=== PATIENT | female | born 1945 | race African-American/Black ===

== ENCOUNTER 2020-02-08 16:39 | Inpatient (IN) | payer OTHER ==
--- NOTE | 2020-02-08 17:02 | PDOC ---
History of Present Illness - General Chief Complaint: Pain Stated Complaint: AMS Time Seen by Provider: 02/08/20 17:02 - History of Present Illness Initial Comments: 02/08/20 17:20 74 year old woman with a history of bullous pemphigoid, L breast CA and early dementia who presents with some signs of AMS earlier in the morning. Per the home agent this evening the AM aid was away for several days and returned and felt that the patient was acting slighlty different, however the evening home agent who is accompanying her reports she is the same as she has been for the past several days. She notes that the patient has some early dementia and gets confused in the mornings. The patient is continent and only wears a diaper for accidents. Normal eating and drinking No fevers, chronic cough, no chest pain, shortness of breath Patient only complains of a chronic sore but has no other complaints Meds: eliquis, metoprolol, anastrozole, sertraline ROS GENERAL/CONSTITUTIONAL: No fever or chills. No weakness. HEAD, EYES, EARS, NOSE AND THROAT: No change in vision. No ear pain or discharge. No sore throat. CARDIOVASCULAR: No chest pain or shortness of breath RESPIRATORY: No cough, wheezing, or hemoptysis. GASTROINTESTINAL: No nausea, vomiting, diarrhea or constipation. GENITOURINARY: No dysuria, frequency, or change in urination. MUSCULOSKELETAL: No joint or muscle swelling or pain. No neck or back pain. SKIN: No rash NEUROLOGIC: No headache, vertigo, loss of consciousness, or change in strength/sensation. ENDOCRINE: No increased thirst. No abnormal weight change HEMATOLOGIC/LYMPHATIC: No anemia, easy bleeding, or history of blood clots. ALLERGIC/IMMUNOLOGIC: No hives or skin allergy. PE GENERAL: Awake, alert, and fully oriented, in no acute distress HEAD: No signs of trauma, normocephalic, atraumatic EYES: EOMI, sclera anicteric, conjunctiva clear ENT: oropharynx clear without exudates. Moist mucosa NECK: Normal ROM, supple LUNGS: No distress, speaks full sentences, clear to auscultation bilaterally HEART: Regular rate and rhythm, normal S1 and S2, no murmurs, rubs or gallops, peripheral pulses normal and equal bilaterally. ABDOMEN: Soft, nontender, No guarding, no rebound. No masses EXTREMITIES : Normal inspection, Normal range of motion, no edema. No clubbing or cyanosis. NEUROLOGICAL: Cranial nerves II through XII grossly intact. Normal speech, no focal sensorimotor deficits SKIN: severe bullous pemphigoid with wounds and dry skin, blisters aroudn the mouth Assessment and Plan 74 year old woman with a history of bullous pemphigoid, L breast CA and early dementia who presents with some signs of AMS earlier in the morning. Consider infectious vs electrolyte derangement vs intracranial pathology CXR: bilateral L > R interstitial infiltrates labs with eosinophils, elevated BNP (no priors, no clinical signs of fluid overload) pending CT head and chest Likely admit endorsed to resident Dr Karol Quevedo, PGY2 Emergency Medicine Past History - Medical History Allergies/Adverse Reactions: Allergies Allergy/AdvReac Type Severity Reaction Status Date / Time Penicillins Allergy Intermediate unaware Verified 02/08/20 17:01 Home Medications: Ambulatory Orders Oxycodone HCl/Acetaminophen [Percocet 5-325 mg Tablet -] 1 - 2 tab PO Q4H PRN #30 tablet 08/01/13 Solifenacin Succinate [Vesicare] 5 mg PO DAILY 08/01/13 levoFLOXacin [Levaquin -] 500 mg PO DAILY #7 tablet 08/01/13 Cancer: Yes (breast) COPD: No Liver Disease: Yes (?medicine induced hepatitis) - Psycho-Social/Smoking History Smoking History: Never smoked Have you smoked in the past 12 months: No Number of Cigarettes Smoked Daily: 5 Information on smoking cessation initiated: No 'Breaking Loose' booklet given: 08/01/13 - Substance Abuse Hx (Audit-C & DAST Scrn) How often the patient has a drink containing alcohol: Never Score: In Men: 4 or > Positive; In Women: 3 or > Positive: 0 Screen Result (Pos requires Nsg. Audit-10AR): Negative In the last yr the pt used illegal drug/Rx for NonMed reason: No Score: Yes response is considered Positive: 0 Screen Result (Positive result requires Nsg. DAST-10): Negative *Physical Exam - Vital Signs Last Vital Signs Temp Pulse Resp BP Pulse Ox 98.4 F 45 L 20 102/64 100 02/08/20 16:55 02/08/20 16:55 02/08/20 16:55 02/08/20 16:55 02/08/20 16:55 ED Treatment Course - LABORATORY CBC & Chemistry Diagram: 02/10/20 08:12 02/10/20 08:12 Discharge - Discharge Information Problems reviewed: Yes Clinical Impression/Diagnosis: Pneumonia - Follow up/Referral - Patient Discharge Instructions - Post Discharge Activity
[2020-02-08 18:14] LABS: BASO % 0.6 % (0-2.0); HEMATOCRIT 32.6 % (32.4-45.2); HEMOGLOBIN 10.4 GM/dL (10.7-15.3); LYMPH % 17.6 % (8-40); MCH 29.7 pg (25.7-33.7); MCHC 31.9 g/dl (32.0-36.0); MEAN CELL VOLUME 93.2 fl (80-96); MEAN PLT VOLUME 7.5 fl (7.5-11.1); MONO % 7.6 % (3.8-10.2); NEUT % 52.7 % (42.8-82.8); PLATELET COUNT 432 K/MM3 (134-434); RDW 16.2 % (11.6-15.6); WHITE BLOOD COUNT 8.9 K/mm3 (4.0-10.0)
[2020-02-08 18:19] LABS: INR 1.54 (0.83-1.09); PROTHROMBIN TIME (PATIENT) 18.2 SEC (9.7-13.0)
[2020-02-08 18:22] LABS: ACTIVATED PTT 31.8 SECONDS (25.2-36.5)
--- NOTE | 2020-02-08 18:24 | PDOC ---
Documentation entered by Monroe Moreno SCRIBE, acting as scribe for Peter Trejo MD. Peter Trejo MD: This documentation has been prepared by the Tiffanie garcia Nirvannie, SCRIBE, under my direction and personally reviewed by me in its entirety. I confirm that the documentation accurately reflects all work, treatment, procedures, and medical decision making performed by me. Attending Attestation - Resident Resident Name: Daniella Quevedo - ED Attending Attestation I have performed the following: I have examined & evaluated the patient, The case was reviewed & discussed with the resident, I agree w/resident's findings & plan, Exceptions are as noted - HPI HPI: 02/08/20 17:52 Patient is 74 year old female with a significant past medical history of bullous pemphigoid, L breast CA and early dementia who presents to the ED with possible AMS. The morning aid reported that the patient was acting "slightly different", but the evening aid accompanying her reports that the patient is at her baseline. She also stated that due to the signs of early dementia, the patient is often confused in the mornings. History was limited secondary to patient's clinical condition thus was obtained via home health aid. Patient complains of a chronic sore Denies fevers, chronic cough, chest pain, shortness of breath Allergies: Penicillins - Physicial Exam PE: 02/08/20 18:26 See resident exam - Medical Decision Making 02/08/20 18:27 74 F with possible episode of AMS this morning. Pt now at baseline per aide. - Labs - CT head - CXR, UA 02/08/20 18:48 CXR shows bilateral infiltrates Will obtain CT chest Discharge - Discharge Information Problems reviewed: Yes Clinical Impression/Diagnosis: Pneumonia Condition: Stable Disposition: VNS/HOME HEALTH CARE - Follow up/Referral - Patient Discharge Instructions - Post Discharge Activity
[2020-02-08 18:41] LABS: EOS % 21.5 % (0-4.5); PLATELET ESTIMATE ADEQUATE
[2020-02-08 18:43] LABS: ALBUMIN 1.5 g/dl (3.4-5.0); BILIRUBIN,TOTAL 0.4 mg/dL (0.2-1); CALCIUM 8.1 mg/dL (8.5-10.1); CREATININE 1.2 mg/dL (0.55-1.3); N-TERMINAL BNP 2117.1 pg/ml (5-125); POTASSIUM 4.8 mmol/L (3.5-5.1)
--- NOTE | 2020-02-08 19:10 | PDOC ---
History of Present Illness - General Chief Complaint: Pain Stated Complaint: AMS Time Seen by Provider: 02/08/20 17:02 History Source: Patient Past History - Medical History Allergies/Adverse Reactions: Allergies Allergy/AdvReac Type Severity Reaction Status Date / Time Penicillins Allergy Intermediate unaware Verified 02/08/20 17:01 Home Medications: Ambulatory Orders Oxycodone HCl/Acetaminophen [Percocet 5-325 mg Tablet -] 1 - 2 tab PO Q4H PRN #30 tablet 08/01/13 Solifenacin Succinate [Vesicare] 5 mg PO DAILY 08/01/13 levoFLOXacin [Levaquin -] 500 mg PO DAILY #7 tablet 08/01/13 Cancer: Yes (breast) COPD: No Liver Disease: Yes (?medicine induced hepatitis) - Psycho-Social/Smoking History Smoking History: Never smoked Have you smoked in the past 12 months: No Number of Cigarettes Smoked Daily: 5 Information on smoking cessation initiated: No 'Breaking Loose' booklet given: 08/01/13 - Substance Abuse Hx (Audit-C & DAST Scrn) How often the patient has a drink containing alcohol: Never Score: In Men: 4 or > Positive; In Women: 3 or > Positive: 0 Screen Result (Pos requires Nsg. Audit-10AR): Negative In the last yr the pt used illegal drug/Rx for NonMed reason: No Score: Yes response is considered Positive: 0 Screen Result (Positive result requires Nsg. DAST-10): Negative *Physical Exam - Vital Signs Last Vital Signs Temp Pulse Resp BP Pulse Ox 98.4 F 45 L 20 102/64 100 02/08/20 16:55 02/08/20 16:55 02/08/20 16:55 02/08/20 16:55 02/08/20 16:55 ED Treatment Course - LABORATORY CBC & Chemistry Diagram: 02/08/20 17:28 02/08/20 17:28 - ADDITIONAL ORDERS Additional order review: Laboratory Results 02/08/20 02/08/20 17:28 17:28 PT with INR 18.20 H INR 1.54 H PTT (Actin FS) 31.8 Sodium 142 Potassium 4.8 Chloride 108 H Carbon Dioxide 28 Anion Gap 7 L BUN 18.0 Creatinine 1.2 Est GFR (CKD-EPI)AfAm 51.56 Est GFR (CKD-EPI)NonAf 44.48 Random Glucose 83 Calcium 8.1 L Total Bilirubin 0.4 AST 112 H ALT 33 Alkaline Phosphatase 63 Troponin I 0.02 B-Natriuretic Peptide 2117.1 H Total Protein 6.0 L Albumin 1.5 L 02/08/20 17:28 RBC 3.50 L MCV 93.2 MCHC 31.9 L RDW 16.2 H MPV 7.5 D Neutrophils % 52.7 Lymphocytes % 17.6 D Monocytes % 7.6 Eosinophils % 21.5 H* D Basophils % 0.6 Discharge - Follow up/Referral Referrals: Haim Madden [Primary Care Provider] - - Patient Discharge Instructions - Post Discharge Activity
--- NOTE | 2020-02-08 21:12 | PDOC ---
*Physical Exam - Vital Signs Last Vital Signs Temp Pulse Resp BP Pulse Ox 98.4 F 45 L 20 102/64 100 02/08/20 16:55 02/08/20 16:55 02/08/20 16:55 02/08/20 16:55 02/08/20 16:55 ED Treatment Course - LABORATORY CBC & Chemistry Diagram: 02/10/20 08:12 02/10/20 08:12 - ADDITIONAL ORDERS Additional order review: Laboratory Results 02/08/20 02/08/20 17:28 17:28 PT with INR 18.20 H INR 1.54 H PTT (Actin FS) 31.8 Sodium 142 Potassium 4.8 Chloride 108 H Carbon Dioxide 28 Anion Gap 7 L BUN 18.0 Creatinine 1.2 Est GFR (CKD-EPI)AfAm 51.56 Est GFR (CKD-EPI)NonAf 44.48 Random Glucose 83 Calcium 8.1 L Total Bilirubin 0.4 AST 112 H ALT 33 Alkaline Phosphatase 63 Troponin I 0.02 B-Natriuretic Peptide 2117.1 H Total Protein 6.0 L Albumin 1.5 L 02/08/20 17:28 RBC 3.50 L MCV 93.2 MCHC 31.9 L RDW 16.2 H MPV 7.5 D Neutrophils % 52.7 Lymphocytes % 17.6 D Monocytes % 7.6 Eosinophils % 21.5 H* D Basophils % 0.6 - RADIOLOGY Radiology Studies Ordered: Category Date Time Status CHEST CTA [CT] Stat CT Scan 02/08/20 20:14 Ordered Medical Decision Making - Medical Decision Making 02/08/20 21:10 74F w/hx bulloid pemphagus, active breast CA, dementia p/w concern for AMS by aid, fully alert and oriented at this time. XR concerning for bilateral infiltrates. Pending: CT Chest CT Head UA Dispo: Pending imaging 02/08/20 21:29 IV infiltrated during contrast injection. IV removed, compress placed. 02/08/20 23:59 On reassessment, patient increasingly delirious, complaining of roaches crawling onto the ceiling (which are not present). Plan for admission. Discharge - Discharge Information Problems reviewed: Yes Clinical Impression/Diagnosis: Pneumonia Condition: Stable Disposition: VNS/HOME HEALTH CARE - Follow up/Referral - Patient Discharge Instructions - Post Discharge Activity
--- NOTE | 2020-02-09 01:47 | PN ---
Teaching Attending Note Name of Resident: Dutch Hernández ATTENDING PHYSICIAN STATEMENT I saw and evaluated the patient. I reviewed the resident's note and discussed the case with the resident. I agree with the resident's findings and plan as documented. SUBJECTIVE: Patient is 74 year old woman with a PMH of Bullous pemphigoid, Penicillin all ergy, Left breast cancer and early Dementia who presents to the ER with possible AMS. The morning Aide reported that the patient was acting "slightly different", but the evening aid accompanying her reports that the patient is at her baseline. She also stated that due to the signs of early dementia, the patient is often confused in the mornings. History was limited secondary to patient's clinical condition thus was obtained from home health aid. Patient complains of a chronic pruritic generalized rash for 1.5 years. Denies fevers, chronic cough, chest pain, shortness of breath, feve, chills, dysuria or diarrhea. Has reportedly had normal eating and drinking. 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 Denies alcohol, tobacco or illicit drug use. No sick contacts or recent travels. Family history is unremarkable. OBJECTIVE: Alert Vital Signs Period Temp Pulse Resp BP Sys/Real Pulse Ox Last 24 Hr 98.4 F 45 20 102/64 100 HEENT: No Jaundice, eye redness or discharge, PERRLA, EOMI. Normocephalic, atraumatic. External ears are normal and hearing is grossly intact. No nasal discharge. Neck: Supple, nontender. No palpable adenopathy or thyromegaly. No JVD Chest: Good effort. Clear to auscultation and percussion. Heart: Regular. No S3, rub or murmur Abdomen: Not distended, soft, nontender and no HSM. No rebound or guarding. Normal bowel sounds. Ext: Peripheral pulses intact. No leg edema. Skin: Warm and dry. Generalized maculopapular rash with scabs and crusting. No petechiae or ecchymosis. Neuro: Alert. Oriented to person. Confused. CN 2-12 grossly intact. Sensation grossly intact in all four extremities and DTR are symmetric. Psych: Appropriate mood and affect. Good insight. Home Medications Medication Instructions Recorded Oxycodone HCl/Acetaminophen 1 - 2 tab PO Q4H PRN #30 tablet 08/01/13 [Percocet 5-325 mg Tablet -] Solifenacin Succinate [Vesicare] 5 mg PO DAILY 08/01/13 levoFLOXacin [Levaquin -] 500 mg PO DAILY #7 tablet 08/01/13 Abnormal Lab Results 02/08/20 02/08/20 02/08/20 17:28 17:28 17:28 RBC 3.50 L Hgb 10.4 L MCHC 31.9 L RDW 16.2 H Eosinophils % 21.5 H* D Eosinophils % (Manual) 19.0 H PT with INR 18.20 H INR 1.54 H Chloride 108 H Anion Gap 7 L Calcium 8.1 L AST 112 H B-Natriuretic Peptide 2117.1 H Total Protein 6.0 L Albumin 1.5 L Current Medications Generic Name Dose Route Start Last Admin Trade Name Freq PRN Reason Stop Dose Admin Albuterol Sulfate 2 puff 02/09/20 04:19 Ventolin Hfa Inhaler - IH Q4H PRN SHORT OF BREATH/WHEEZING Budesonide/Formoterol Fumarate 2 puff 02/09/20 10:00 Symbicort 80/4.5mcg - IH BID MAKI Enoxaparin Sodium 40 mg 02/09/20 10:00 Lovenox - SQ DAILY MAKI Hydroxyzine HCl 10 mg 02/09/20 03:54 Atarax Liquid - PO Q6H PRN FOR ITCHING Melatonin 10 mg 02/09/20 04:06 02/09/20 04:26 Melatonin PO 10 mg HS MAKI Administration ASSESSMENT AND PLAN: 1. Altered mental status - Etiology unclear. May signal delirium due to heat stroke. Eosinophilia is unexplained, but may be related to interstitial lung disease. Head CT showed moderate atrophy but no acute abnormality. CTA chest/thorax shows diffuse increased interstitial lung markings, multiple pleural-based nodules mainly in lower lobes. Consult Pulmonary. CXR shows cardiomegaly and increased interstitial markings. Treat with Melatonin, apply Clobetasol propionate cream and use Atarax for pruritus associated with rash - avoid benzodiazepine in view of possible delirium. Consult Dermatology, Neurology and Hematology. EKG shows NSR at 92/minute and QTc 442, PVCs, PACs with no significant ST-T wave changes. Viral testing for COVID-19 ordered and patient placed on airborne, droplet and contact isolation. Will get urinalysis stat, hydrate patient orally, monitor on telemetry, get ECHO, urine toxicology, do neurochecks, and implement fall and aspiration precautions. Will continue comprehensive care for all of patients comorbid conditions. 2. Severe hypoalbuminemia - Possibly due to combined effects of malnutrition and inflammation associated with comorbid conditions. Will ensure adequate dietary protein intake and also consult electrician radio. Urinalysis pending. 3. Obesity Counseled on the risks associated with obesity. Will provide patient all the necessary assistance, counseling and positive reinforcement to facilitate weight loss. Consult electrician radio. 4. DVT prophylaxis - Lovenox 40 mg SQ q 24 hours. 5. Advance directives - Full code
--- NOTE | 2020-02-09 01:58 | HP ---
CHIEF COMPLAINT: complains of itchiness PCP: Maryanne HISTORY OF PRESENT ILLNESS: 74F w/ pmh of pemphigus, Left breast CA([id number]), dementia presenting to [facility] after morning SULFATE DRIER MACHINE OPERATOR thought pt appeared confused. In the ED, the night SULFATE DRIER MACHINE OPERATOR thought the pt appeared baseline. Neither SULFATE DRIER MACHINE OPERATOR were available at time of [facility] under[facility]'s medical interview. Pt endorsed seeking cockroaches on the ceiling. Patient endorses seeing large Termites on the ceiling(points to WiFi anntenae protruding through the drop-ceiling) and expresses fear. Has complaint of severe all-over itchiness from head to toes, worse in the axilla and groin. States that is on- going for >1yr. Applies unspecified cream that provides little relief. Has non-productive cough for the past few days. Thinks her legs have been swollen. Has extensive smoking history(1ppd since 16y/o). Is unsure about her previous breast ca, and breast imagings. Says that she was at [facility] a few weeks ago but doesn't know why. History was difficult, as pt was somonlent and speaking tangentially. ER course was notable for: (1) Tmax 98.4, HR 45 (2) Hgb 10.4, MCV 93.2 (3) WBC 8.9(eosinphils 21.5%) (4) BNP 2117.1 (5) Alb 1.5 (6) CXR: b/l increased interstitial opacities, mainly in Left lung lung; suggestive of infiltrates (7) CTH: moderate atrophy w/o evidence of focal intracranial lesions or hemorrhage seen (8) CTA Chest: only faint pulmonary artery enhancement, nondiagnostic. Diffuse b/l increased interstitial lung markings w/ multiple subpleural bulla, consistent w/ mod-marked COPD, multiple juxtapleural and pleural nodules; b/l axillary LNs(largest at Right-side, 1.7 x1.2cm) Recent Travel: none PAST MEDICAL HISTORY: as above, but pt is a poor historian PAST SURGICAL HISTORY: unspecified hip surgery after fall Social History: Smokinppd since 16-17y/o Alcohol: "sometimes" Drugs: denies Allergies Penicillins Allergy (Intermediate, Verified 02/08/20 17:01) unaware HOME MEDICATIONS: Home Medications Medication Instructions Recorded Oxycodone HCl/Acetaminophen 1 - 2 tab PO Q4H PRN #30 tablet 08/01/13 [Percocet 5-325 mg Tablet -] Solifenacin Succinate [Vesicare] 5 mg PO DAILY 08/01/13 levoFLOXacin [Levaquin -] 500 mg PO DAILY #7 tablet 08/01/13 REVIEW OF SYSTEMS CONSTITUTIONAL: Absent: fever, chills, diaphoresis, generalized weakness, malaise, loss of appetite, weight change HEENT: Absent: rhinorrhea, nasal congestion, throat pain, throat swelling, difficulty swallowing, mouth swelling, ear pain, eye pain, visual changes CARDIOVASCULAR: Absent: chest pain, syncope, palpitations, irregular heart rate, lightheadedness, peripheral edema RESPIRATORY: nonproductive cough Absent: shortness of breath, dyspnea with exertion, orthopnea, wheezing, stridor, hemoptysis GASTROINTESTINAL: Absent: abdominal pain, abdominal distension, nausea, vomiting, diarrhea, constipation, melena, hematochezia GENITOURINARY: Absent: dysuria, frequency, urgency, hesitancy, hematuria, flank pain, genital pain MUSCULOSKELETAL: Absent: myalgia, arthralgia, joint swelling, back pain, neck pain SKIN: all-over itch, peeling superficial skin rash Absent: pallor HEMATOLOGIC/IMMUNOLOGIC: Absent: easy bleeding, easy bruising, lymphadenopathy, frequent infections ENDOCRINE: Absent: unexplained weight gain, unexplained weight loss, heat intolerance, cold intolerance NEUROLOGIC: Absent: headache, focal weakness or paresthesias, dizziness, unsteady gait, seizure, mental status changes, bladder or bowel incontinence PSYCHIATRIC: Absent: anxiety, depression, suicidal or homicidal ideation, hallucinations. PHYSICAL EXAMINATION Vital Signs - 24 hr 02/08/20 16:55 Temperature 98.4 F Pulse Rate 45 L Respiratory 20 Rate Blood Pressure 102/64 O2 Sat by Pulse 100 Oximetry (%) GENERAL: NAD. Somonolent HEAD: NC/AT EYES: Sclera anicteric, conjunctiva clear and w/o pallor. EARS, NOSE, THROAT: Moist mucous membranes. No orals ulcers NECK: supple without lymphadenopathy, JVD, or masses. LUNGS: Faint b/l lower base crackles. No wheezes. No accessory muscle use. HEART: Regular rhythm, normal S1 and S2 without murmur. ABDOMEN: Soft, nontender, not distended, no guarding, no rebound, no masses MUSCULOSKELETAL: Normal range of motion at all joints. No bony deformities or tenderness. UPPER EXTREMITIES: 2+ pulses, warm, well-perfused. No cyanosis. No clubbing. No peripheral edema. LOWER EXTREMITIES: 2+ pulses, warm, well-perfused. No calf tenderness. No peripheral edema. NEUROLOGICAL: Cranial nerves II-XII intact. A&Ox2(name, year). Tangential speech SKIN: head to toe superficial crusted rash w/ scaly skin and areas of nonpigmented skin. No active drainage Laboratory Results - last 24 hr 02/08/20 02/08/20 02/08/20 17:28 17:28 17:28 WBC 8.9 RBC 3.50 L Hgb 10.4 L Hct 32.6 D MCV 93.2 MCH 29.7 MCHC 31.9 L RDW 16.2 H Plt Count 432 D MPV 7.5 D Absolute Neuts (auto) 4.7 Neutrophils % 52.7 Neutrophils % (Manual) 55.0 Lymphocytes % 17.6 D Lymphocytes % (Manual) 20.0 Monocytes % 7.6 Monocytes % (Manual) 6 Eosinophils % 21.5 H* D Eosinophils % (Manual) 19.0 H Basophils % 0.6 Nucleated RBC % 0 Platelet Estimate Adequate PT with INR 18.20 H INR 1.54 H PTT (Actin FS) 31.8 Sodium 142 Potassium 4.8 Chloride 108 H Carbon Dioxide 28 Anion Gap 7 L BUN 18.0 Creatinine 1.2 Est GFR (CKD-EPI)AfAm 51.56 Est GFR (CKD-EPI)NonAf 44.48 Random Glucose 83 Calcium 8.1 L Total Bilirubin 0.4 AST 112 H ALT 33 Alkaline Phosphatase 63 Troponin I 0.02 B-Natriuretic Peptide 2117.1 H Total Protein 6.0 L Albumin 1.5 L ASSESSMENT/PLAN: 74F w/ pmh of pemphigus, Left breast CA([id number]), dementia presenting to [facility] after morning SULFATE DRIER MACHINE OPERATOR thought pt appeared confused. Pt complains of total-body itchiness, nonproductive cough, and sees termites crawling on ceiling. #AMS vs acute on chronic dementia vs metabolic encephalopathy --possibly 2/2 to UTI > CTH: moderate atrophy w/o evidence of focal intracranial lesions or hemorrhage seen > fu B12/folate/TSH/RPR - neuro consult(Everette): --recs pending #uncontrolled pemphigus --possibly 2/2 eosinophilic rash w/o signs of infection > WBC 8.9(eosinphils 21.5%) - hydroxyzine PO PRN - topical steroids(eg. clobetasol) - Derm consult(Lopez): --recs pending - Hematology consult(Marilyn Gonzales): --recs pending #nonproductive cough --possibly 2/2 pulmonary fibrosis, pulmonary HTN, COPD; less likely CHFe #pleural nodules --possible breast mets > CXR: b/l increased interstitial opacities, mainly in Left lung lung; suggestive of infiltrates > CTA Chest: only faint pulmonary artery enhancement, nondiagnostic. Diffuse b/l increased interstitial lung markings w/ multiple subpleural bulla, consistent w/ mod-marked COPD, multiple juxtapleural and pleural nodules; b/l axillary LNs(largest at Right-side, 1.7 x1.2cm) > BNP 2117.1 --possibly 2/2 CHF vs pulm hypertension; appears euvolemic > Echo --pending - HOLDING off on steroids for now - albuterol PRN - symbicort - Pulm Consult(Blanco): --recs pending #breast mass --possible mets > Mammo-[facility](08/16/19): Right breast w/ 4.5cm irreg mass at 3-5oclock, retroareolar Right breast 2.3cm lesion, Right breast 9-10oclock 1cm LN --BIRADS 5 - Hemat/Onc consult(Marilyn Gonzales): --recs pending #normocytic anemia (2) Hgb 10.4, MCV 93.2 > iron studies --pending > B12, Folate --pending #UTI > UA: LE 2+, WBC 144, Urine Casts, bact 967, epith >36 - ceftriaxone #asymptomatic bradycardia - monitor FEN - no mIVF - sodium-controlled diet DVT PPX - lovenox Family Medical History Family History: Denies (is a Foster Child) Visit type - Emergency Visit Emergency Visit: Yes ED Registration Date: 02/09/20 Care time: The patient presented to the Emergency Department on the above date and was hospitalized for further evaluation of their emergent condition. - New Patient This patient is new to me today: Yes Date on this admission: 02/09/20 - Critical Care Critical Care patient: No ATTENDING PHYSICIAN STATEMENT I saw and evaluated the patient. I reviewed the resident's note and discussed the case with the resident. I agree with the resident's findings and plan as documented. SUBJECTIVE: OBJECTIVE: ASSESSMENT AND PLAN:
[2020-02-09] MEDS ORDERED: hydrOXYzine HCL 10 MG/5 ML LIQUID BULK BOTTLE PO PRN (03:54)
[2020-02-09] MEDS ORDERED: ALBUTEROL SO4 HFA INHALER IH PRN (04:19)
[2020-02-09] MEDS ORDERED: MELATONIN 5 MG TABLETS ONE (04:22)
[2020-02-09] MEDS: MELATONIN 5 MG TABLETS PO SCH ×2 (04:26→22:18)
[2020-02-09 04:40] LABS: EPI CELLS >36 /uL (0-25.1); HYALINE CASTS 21 /uL (0-3.1); URINE APPEARANCE TURBID; URINE BACTERIA 967 /uL (0-1359); URINE BILIRUBIN NEGATIVE (NEGATIVE); URINE COLOR DK YELLOW; URINE GLUCOSE (UA) NEGATIVE (NEGATIVE); URINE KETONE TRACE (NEGATIVE); URINE LEUK ESTERASE 2+ (NEGATIVE); URINE NITRITE NEGATIVE (NEGATIVE); URINE PROTEIN TRACE (NEGATIVE); URINE WBC 144 /uL (0-25.8)
[2020-02-09 05:52] LABS: URINE RBC 144 /uL (0-23.9)
[2020-02-09] MEDS: ENOXAPARIN NA (PORCINE) 40 MG/0.4 ML DISP.SYRIN SQ SCH (11:30)
[2020-02-09] MEDS ORDERED: CEFTRIAXONE 1 GM/50 ML BAG ONE (11:31)
[2020-02-09] MEDS ORDERED: ENOXAPARIN NA (PORCINE) 40 MG/0.4 ML DISP.SYRIN SQ ONE (11:31)
--- NOTE | 2020-02-09 11:46 | CON.PULM ---
Consult Consult Specialty:: PULM/CCM Referred by:: Hospitalist Reason for Consultation:: Abnormal CT - History of Present Illness Chief Complaint: AMS History of Present Illness: 74 M, active smoker (1 pack every 2 to 3 days), bullous pemphigoid, Left breast cancer (undergoing chemotherapy), and apparent early dementia. Admitted via the ER due to AMS. Her TERRAPIN FISHER is here at the bedside. No travel history or sick contacts. No note of fever or chills. No hemoptysis or night sweats. No known COVID19 exposure. CT chest : diffuse ILD / bullae / several nodules largest being a pleural based RLL lesion (there is no prior imaging for comparison). No acute process is noted. - History Source History Provided By: Medical Record, Caregiver Limitations to Obtaining History: Clinical Condition - Past Medical History Pulmonary: Yes: Bronchitis. No: Asthma, Cancer, COPD, O2 Dependent, Pneumonia, Previously Intubated, Pulmonary Embolus, Pulmonary Fibrosis, Sleep Apnea - Alcohol/Substance Use Hx Alcohol Use: No - Smoking History Smoking history: Never smoked Have you smoked in the past 12 months: No Aproximately how many cigarettes per day: 5 Home Medications - Allergies Allergies/Adverse Reactions: Allergies Allergy/AdvReac Type Severity Reaction Status Date / Time Penicillins Allergy Intermediate unaware Verified 02/08/20 17:01 - Home Medications Home Medications: Ambulatory Orders Oxycodone HCl/Acetaminophen [Percocet 5-325 mg Tablet -] 1 - 2 tab PO Q4H PRN #30 tablet 08/01/13 Solifenacin Succinate [Vesicare] 5 mg PO DAILY 08/01/13 levoFLOXacin [Levaquin -] 500 mg PO DAILY #7 tablet 08/01/13 Review of Systems Unable to obtain ROS, reason: Not able to provide Physical Exam Vital Sings: Vital Signs Temperature 98.3 F 02/09/20 06:15 Pulse Rate 61 02/09/20 06:15 Respiratory Rate 16 02/09/20 06:15 Blood Pressure 104/67 02/09/20 06:15 O2 Sat by Pulse Oximetry (%) 98 02/09/20 06:15 Constitutional: Yes: No Distress, Obese Eyes: Yes: Conjunctiva Clear, EOM Intact HENT: Yes: Atraumatic, Normocephalic Neck: Yes: Supple, Trachea Midline Cardiovascular: Yes: Regular Rate and Rhythm Respiratory: Yes: Cough, Diminished, On Nasal O2, Rhonchi. No: Accessory Muscle Use, Rales, SOB, SOB on Exertion, Stridor, Tachypnea, Wheezes ...Inspection: Yes: WNL Gastrointestinal: Yes: Normal Bowel Sounds, Soft, Abdomen, Obese Musculoskeletal: Yes: WNL Extremities: Yes: WNL Edema: No Peripheral Pulses WNL: Yes Integumentary: Yes: Other (Bullous lesions ) Labs: CBC, BMP 02/08/20 17:28 02/08/20 17:28 Imaging - Results Chest X-ray: Report Reviewed, Image Reviewed Cat Scan: Report Reviewed, Image Reviewed Problem List - Problems (1) ILD (interstitial lung disease) Code(s): J84.9 - INTERSTITIAL PULMONARY DISEASE, UNSPECIFIED (2) SOB (shortness of breath) Code(s): R06.02 - SHORTNESS OF BREATH (3) Cough Code(s): R05 - COUGH (4) Smoker Code(s): F17.200 - NICOTINE DEPENDENCE, UNSPECIFIED, UNCOMPLICATED (5) COPD (chronic obstructive pulmonary disease) Code(s): J44.9 - CHRONIC OBSTRUCTIVE PULMONARY DISEASE, UNSPECIFIED (6) Lung nodule seen on imaging study Code(s): R91.1 - SOLITARY PULMONARY NODULE (7) Multiple lung nodules on CT Code(s): R91.8 - OTHER NONSPECIFIC ABNORMAL FINDING OF LUNG FIELD (8) AMS (altered mental status) Code(s): R41.82 - ALTERED MENTAL STATUS, UNSPECIFIED (9) Breast cancer Code(s): C50.919 - MALIGNANT NEOPLASM OF UNSP SITE OF UNSPECIFIED FEMALE BREAST Assessment/Plan IMP: At present I do not suspect active pulmonary infection PLAN: Lung nodules can be followed as an outpatient : PET scan may be useful due to the size of the lesions No smoking should be enforced Monitor off systemic steroids BD TX PRN Unclear what chemotherapy she is receiving : (?) contributing to AMS PFTs as an outpatient Will follow Thank you. Dr Johnson
--- NOTE | 2020-02-09 12:13 | EKG ---
Test Reason : Blood Pressure : / mmHG Vent. Rate : 092 BPM Atrial Rate : 092 BPM P-R Int : 128 ms QRS Dur : 068 ms QT Int : 358 ms P-R-T Axes : 066 039 034 degrees QTc Int : 442 ms POOR DATA QUALITY, INTERPRETATION MAY BE ADVERSELY AFFECTED SINUS RHYTHM WITH FREQUENT PREMATURE VENTRICULAR COMPLEXES AND PREMATURE ATRIAL COMPLEXES OTHERWISE NORMAL ECG WHEN COMPARED WITH ECG OF 25-DEC-2018 12:53, PREMATURE VENTRICULAR COMPLEXES ARE NOW PRESENT PREMATURE ATRIAL COMPLEXES ARE NOW PRESENT Confirmed by ISI VENTURA MD ([id number]) on 02/09/2020 12:12:40 PM Referred By: Confirmed By:ISI VENTURA MD
[2020-02-09] MEDS: BUDESONIDE/FORMETEROL FUMARATE 80/4.5 mcg INHALER IH SCH ×2 (12:30→22:18)
[2020-02-09] MEDS: CEFTRIAXONE 1 GM in DEXTROSE 5%-WATER - 50 ML IVPB SCH (12:35)
[2020-02-09] MEDS: TRIAMCINOLONE ACET 0.1% OINT 15 GM TUBE TP SCH ×2 (13:41→22:18)
--- NOTE | 2020-02-09 15:55 | ECHO ---
Name: SMII CHEN Exam:Adult Echocardiogram Study Date: 02/09/2020 09:39 AM Age: 74 yrs MMode/2D Measurements & Calculations IVSd: 1.0 cm Ao root diam: 2.6 cm LVIDd: 4.2 cm LA dimension: 3.4 cm LVIDs: 2.8 cm LVPWd: 1.2 cm LVPWs: 1.4 cm EDV(Teich): 76.9 ml ESV(Teich): 30.4 ml LVOT diam: 1.9 cm LAV (MOD-bp): 66.0 ml RV S Ambrocio: 19.0 cm/sec Doppler Measurements & Calculations MV E max ambrocio: 60.2 cm/sec Ao V2 max: 186.8 cm/sec MV A max ambrocio: 102.2 cm/sec Ao max P.0 mmHg MV E/A: 0.59 DEREK(V,D): 2.1 cm2 MV dec time: 0.13 sec LV V1 max P.6 mmHg PA V2 max: 94.5 cm/sec LV V1 max: 137.7 cm/sec PA max P.6 mmHg Med Peak E' Ambrocio: 6.3 cm/sec Med E/e': 9.6 Lat Peak E' Ambrocio: 10.5 cm/sec Lat E/e': 5.7 Tech Comments sax and subcostal technically difficult. Procedure A complete two-dimensional transthoracic echocardiogram was performed (2D, M-mode, Doppler and color flow Doppler). Left Ventricle The left ventricular size, thickness and function are normal. Ejection Fraction = 60-65%. The left ve ntricular wall motion is normal. Right Ventricle The right ventricle is normal in size and function. Atria Normal left and right atrial size and function. Mitral Valve There is no mitral regurgitation noted. Tricuspid Valve There is trace tricuspid regurgitation. There was insufficient TR detected to calculate RV systolic p ressure. Aortic Valve No hemodynamically significant valvular aortic stenosis. No aortic regurgitation is present. Pulmonic Valve There is no pulmonic valvular regurgitation. Great Vessels The aortic root is normal size. Pericardium/Pleura There is no pericardial effusion. Interpretation Summary The left ventricular size, thickness and function are normal The right ventricle is normal in size and function. There is trace tricuspid regurgitation. MD Rod Moreno 02/09/2020 03:54 PM
--- NOTE | 2020-02-09 16:42 | CON.CARD ---
Cardiology Consult (text) - Consultation Consultation Note: cc: ams hpi: 74 f hx dementia, breast ca, brought to er by customer logistics manager for ams. Poor historian, hx from charts as well. Pt reports itching of skin, no other complaints, confused. AIRCRAFT AIR CONDITIONING MECHANIC reports that she has been more confused lately. pmh: per hpi psh: hip surgery social: +cigs fam: unknown ros: unable to obtain 2/2 dementia. meds: Home Medications Medication Instructions Recorded Oxycodone HCl/Acetaminophen 1 - 2 tab PO Q4H PRN #30 tablet 08/01/13 [Percocet 5-325 mg Tablet -] Solifenacin Succinate [Vesicare] 5 mg PO DAILY 08/01/13 levoFLOXacin [Levaquin -] 500 mg PO DAILY #7 tablet 08/01/13 pe: Vital Signs Period Temp Pulse Resp BP Sys/Real Pulse Ox Last 24 Hr 98.1 F-98.4 F 45-65 16-20 100-104/56-67 97-100 nad no jvd rrr s1s2 no mrg cta bl nl eff awake, confused abd nt nd pos bs no jaundice diaphoresis pos dp pt no carotid bruits no le e/c/c Laboratory Last Values WBC 8.9 K/mm3 (4.0-10.0) 02/08/20 17:28 RBC 3.50 M/mm3 (3.60-5.2) L 02/08/20 17:28 Hgb 10.4 GM/dL (10.7-15.3) L 02/08/20 17:28 Hct 32.6 % (32.4-45.2) D 02/08/20 17:28 MCV 93.2 fl (80-96) 02/08/20 17:28 MCH 29.7 pg (25.7-33.7) 02/08/20 17:28 MCHC 31.9 g/dl (32.0-36.0) L 02/08/20 17:28 RDW 16.2 % (11.6-15.6) H 02/08/20 17:28 Plt Count 432 K/MM3 (134-434) D 02/08/20 17:28 MPV 7.5 fl (7.5-11.1) D 02/08/20 17:28 Absolute Neuts (auto) 4.7 K/mm3 (1.5-8.0) 02/08/20 17:28 Neutrophils % 52.7 % (42.8-82.8) 02/08/20 17:28 Neutrophils % (Manual) 55.0 % (42.8-82.8) 02/08/20 17:28 Lymphocytes % 17.6 % (8-40) D 02/08/20 17:28 Lymphocytes % (Manual) 20.0 % (8-40) 02/08/20 17:28 Monocytes % 7.6 % (3.8-10.2) 02/08/20 17:28 Monocytes % (Manual) 6 % (3.8-10.2) 02/08/20 17:28 Eosinophils % 21.5 % (0-4.5) H* D 02/08/20 17:28 Eosinophils % (Manual) 19.0 % (0-4.5) H 02/08/20 17:28 Basophils % 0.6 % (0-2.0) 02/08/20 17:28 Nucleated RBC % 0 % (0-0) 02/08/20 17:28 Platelet Estimate Adequate 02/08/20 17:28 PT with INR 18.20 SEC (9.7-13.0) H 02/08/20 17:28 INR 1.54 (0.83-1.09) H 02/08/20 17:28 PTT (Actin FS) 31.8 SECONDS (25.2-36.5) 02/08/20 17:28 Sodium 142 mmol/L (136-145) 02/08/20 17:28 Potassium 4.8 mmol/L (3.5-5.1) 02/08/20 17:28 Chloride 108 mmol/L (98-107) H 02/08/20 17:28 Carbon Dioxide 28 mmol/L (21-32) 02/08/20 17:28 Anion Gap 7 MMOL/L (8-16) L 02/08/20 17:28 BUN 18.0 mg/dL (7-18) 02/08/20 17:28 Creatinine 1.2 mg/dL (0.55-1.3) 02/08/20 17:28 Est GFR (CKD-EPI)AfAm 51.56 02/08/20 17:28 Est GFR (CKD-EPI)NonAf 44.48 02/08/20 17:28 POC Glucometer 59 UNITS (80-120) 02/09/20 08:25 Random Glucose 83 mg/dL (74-106) 02/08/20 17:28 Calcium 8.1 mg/dL (8.5-10.1) L 02/08/20 17:28 Total Bilirubin 0.4 mg/dL (0.2-1) 02/08/20 17:28 AST 112 U/L (15-37) H 02/08/20 17:28 ALT 33 U/L (13-61) 02/08/20 17:28 Alkaline Phosphatase 63 U/L (45-117) 02/08/20 17:28 Troponin I 0.02 ng/ml (0.00-0.05) 02/08/20 17: B-Natriuretic Peptide 2117.1 pg/ml (5-125) H 02/08/20 17:28 Total Protein 6.0 g/dl (6.4-8.2) L 02/08/20 17:28 Albumin 1.5 g/dl (3.4-5.0) L 02/08/20 17:28 Urine Color Dk yellow 02/09/20 04:10 Urine Appearance Turbid 02/09/20 04:10 Urine pH 5.0 (5.0-8.0) 02/09/20 04:10 Ur Specific [place] 1.040 (1.010-1.035) H 02/09/20 04:10 Urine Protein Trace (NEGATIVE) 02/09/20 04:10 Urine Glucose (UA) Negative (NEGATIVE) 02/09/20 04:10 Urine Ketones Trace (NEGATIVE) H 02/09/20 04:10 Urine Blood 2+ (NEGATIVE) H 02/09/20 04:10 Urine Nitrite Negative (NEGATIVE) 02/09/20 04:10 Urine Bilirubin Negative (NEGATIVE) 02/09/20 04:10 Urine Urobilinogen 1.0 mg/dL (0.2-1.0) 02/09/20 04:10 Ur Leukocyte Esterase 2+ (NEGATIVE) H 02/09/20 04:10 Urine WBC (Auto) 144 /uL (0-25.8) 02/09/20 04:10 Urine RBC (Auto) 144 /uL (0-23.9) 02/09/20 04:10 Urine Casts (Auto) 21 /uL (0-3.1) 02/09/20 04:10 U Pathogenic Cast Auto None /lpf (NEGATIVE) 02/09/20 04:10 U Epithel Cells (Auto) >36 /uL (0-25.1) 02/09/20 04:10 Urine Bacteria (Auto) 967 /uL (0-1359) 02/09/20 04:10 Urine Yeast (Auto) None (NEGATIVE) 02/09/20 04:10 cta chest: +copd changes, no chf ecg: sr, pacs, pvcs, nl intervals, no ischemic changes echo 01/2020: nl lv/rv, no sig valve path tele: sr a/p: 74 f hx dementia, breast ca, brought to er by customer logistics manager for ams. elevated bnp: -no signs chf on exam or imaging. no signs acs. -echo unremarkable here -can dc tele ams: -possible med related vs uti, plans per primary
--- NOTE | 2020-02-09 16:42 | PN ---
Physical Exam: SUBJECTIVE: Patient seen and examined at the bedside. FIBERGLASS BOAT ASSEMBLY SUPERVISOR provides most of the history. tells me patient has had a generalized rash for apx one year and that the rash actually looks better. she has breakdown of her skin on right posterior thigh and right lower back from persistent itching. OBJECTIVE: Patient is a 74 year old female with a significant past medical history of pemphigus vulgaris (follows with derm), left breast CA, dementia. Patient presents to the ED on 02/08/2020 after FIBERGLASS BOAT ASSEMBLY SUPERVISOR noted that patient appeared confused. In the ED, the present FIBERGLASS BOAT ASSEMBLY SUPERVISOR states patient mentation is at her baseline. On admission, Pt endorsed seeking cockroaches on the ceiling. Patient endorses seeing large termites on the ceiling. However, she is no longer seeing object in the ceiling. On review of home meds, patient is on oxycodone, but ISTOP reveals no recent prescription for oxycodone. Vital Signs Period Temp Pulse Resp BP Sys/Real Pulse Ox Last 24 Hr 98.1 F-98.4 F 45-65 16-20 100-104/56-67 97-100 GENERAL: The patient is awake, alert, and fully oriented, in no acute distress. HEAD: Normal with no signs of trauma. EYES: PERRL, extraocular movements intact, sclera anicteric, conjunctiva clear. No ptosis. ENT: Ears normal, nares patent, oropharynx clear without exudates, dry mucous membranes. NECK: Trachea midline, full range of motion, supple. LUNGS: Breath sounds equal, clear to auscultation bilaterally, no wheezes HEART: Regular rate and rhythm, S1, S2 without murmur, rub or gallop. ABDOMEN: Soft, nontender, nondistended, normoactive bowel sounds NEUROLOGICAL: Normal speech, gait not observed. PSYCH: Normal mood, normal affect. SKIN: head to toe superficial crusted rash w/ scaly skin and areas of nonpigmented skin. No active drainage. multiple areas with open lesions. right post thigh, open wound, right flank open wound, all present on admission. Laboratory Results - last 24 hr 02/08/20 02/08/20 02/08/20 17:28 17:28 17:28 WBC 8.9 RBC 3.50 L Hgb 10.4 L Hct 32.6 D MCV 93.2 MCH 29.7 MCHC 31.9 L RDW 16.2 H Plt Count 432 D MPV 7.5 D Absolute Neuts (auto) 4.7 Neutrophils % 52.7 Neutrophils % (Manual) 55.0 Lymphocytes % 17.6 D Lymphocytes % (Manual) 20.0 Monocytes % 7.6 Monocytes % (Manual) 6 Eosinophils % 21.5 H* D Eosinophils % (Manual) 19.0 H Basophils % 0.6 Nucleated RBC % 0 Platelet Estimate Adequate PT with INR 18.20 H INR 1.54 H PTT (Actin FS) 31.8 Sodium 142 Potassium 4.8 Chloride 108 H Carbon Dioxide 28 Anion Gap 7 L BUN 18.0 Creatinine 1.2 Est GFR (CKD-EPI)AfAm 51.56 Est GFR (CKD-EPI)NonAf 44.48 POC Glucometer Random Glucose 83 Calcium 8.1 L Total Bilirubin 0.4 AST 112 H ALT 33 Alkaline Phosphatase 63 Troponin I 0.02 B-Natriuretic Peptide 2117.1 H Total Protein 6.0 L Albumin 1.5 L Urine Color Urine Appearance Urine pH Ur Specific [place] Urine Protein Urine Glucose (UA) Urine Ketones Urine Blood Urine Nitrite Urine Bilirubin Urine Urobilinogen Ur Leukocyte Esterase Urine WBC (Auto) Urine RBC (Auto) Urine Casts (Auto) U Pathogenic Cast Auto U Epithel Cells (Auto) Urine Bacteria (Auto) Urine Yeast (Auto) 02/09/20 02/09/20 04:10 08:25 WBC RBC Hgb Hct MCV MCH MCHC RDW Plt Count MPV Absolute Neuts (auto) Neutrophils % Neutrophils % (Manual) Lymphocytes % Lymphocytes % (Manual) Monocytes % Monocytes % (Manual) Eosinophils % Eosinophils % (Manual) Basophils % Nucleated RBC % Platelet Estimate PT with INR INR PTT (Actin FS) Sodium Potassium Chloride Carbon Dioxide Anion Gap BUN Creatinine Est GFR (CKD-EPI)AfAm Est GFR (CKD-EPI)NonAf POC Glucometer 59 Random Glucose Calcium Total Bilirubin AST ALT Alkaline Phosphatase Troponin I B-Natriuretic Peptide Total Protein Albumin Urine Color Dk yellow Urine Appearance Turbid Urine pH 5.0 Ur Specific [place] 1.040 H Urine Protein Trace Urine Glucose (UA) Negative Urine Ketones Trace H Urine Blood 2+ H Urine Nitrite Negative Urine Bilirubin Negative Urine Urobilinogen 1.0 Ur Leukocyte Esterase 2+ H Urine WBC (Auto) 144 Urine RBC (Auto) 144 Urine Casts (Auto) 21 U Pathogenic Cast Auto None U Epithel Cells (Auto) >36 Urine Bacteria (Auto) 967 Urine Yeast (Auto) None Active Medications Generic Name Dose Route Start Last Admin Trade Name Freq PRN Reason Stop Dose Admin Albuterol Sulfate 2 puff 02/09/20 04:19 Ventolin Hfa Inhaler - IH Q4H PRN SHORT OF BREATH/WHEEZING Budesonide/Formoterol Fumarate 2 puff 02/09/20 10:00 02/09/20 12:30 Symbicort 80/4.5mcg - IH 2 puff BID MAKI Administration Enoxaparin Sodium 40 mg 02/09/20 10:00 02/09/20 11:30 Lovenox - SQ 40 mg DAILY MAKI Administration Hydroxyzine HCl 10 mg 02/09/20 03:54 Atarax Liquid - PO Q6H PRN FOR ITCHING Ceftriaxone Sodium 1 gm/ 50 mls @ 100 mls/hr 02/09/20 10:00 02/09/20 12:35 Dextrose IVPB 100 mls/hr DAILY MAKI Administration Melatonin 10 mg 02/09/20 04:06 02/09/20 04:26 Melatonin PO 10 mg HS MAKI Administration Triamcinolone Acetonide 1 applic 02/09/20 10:00 02/09/20 13:41 Aristocort 0.1% Ointment - TP 1 applic BID MAKI Administration ASSESSMENT/PLAN: Problem List - Problems (1) Generalized skin lesions Assessment/Plan: chronic, hospital bed recommended. outpatient follow up with derm Code(s): L98.9 - DISORDER OF THE SKIN AND SUBCUTANEOUS TISSUE, UNSPECIFIED (2) AMS (altered mental status) Assessment/Plan: resolved head ct negative UA + bacteria. UC contaminated monitor off antibiotics pending ID recommendations Code(s): R41.82 - ALTERED MENTAL STATUS, UNSPECIFIED (3) COPD (chronic obstructive pulmonary disease) Assessment/Plan: not in acute exacerbation Code(s): J44.9 - CHRONIC OBSTRUCTIVE PULMONARY DISEASE, UNSPECIFIED (4) Cough Assessment/Plan: resolved Code(s): R05 - COUGH (5) Dementia Code(s): F03.90 - UNSPECIFIED DEMENTIA WITHOUT BEHAVIORAL DISTURBANCE (6) Lung nodule seen on imaging study Assessment/Plan: outpatient pet scan Code(s): R91.1 - SOLITARY PULMONARY NODULE Visit type - Emergency Visit Emergency Visit: Yes ED Registration Date: 06/25/20 Care time: The patient presented to the Emergency Department on the above date and was hospitalized for further evaluation of their emergent condition. - New Patient This patient is new to me today: No - Critical Care Critical Care patient: No - Discharge Referral Referred to [facility] No
--- NOTE | 2020-02-09 16:56 | CON.NEURO ---
Consult Consult Specialty:: [facility] Referred by:: PCP - History of Present Illness History of Present Illness: 74-year-old right-handed female patient with multiple medical problem including history of breast cancer who presents to the hospital with a chief complaint of difficulty with confusion patient was seen in the emergency room patient was stabilized patient with noted with mild confusion patient with history of baseline dementia there is no family member at the bedside patient was interviewed by herself patient was not able to give a clear history. - History Source History Provided By: Medical Record Limitations to Obtaining History: Clinical Condition - Past Medical History Pulmonary: Yes: Bronchitis. No: Asthma, Cancer, COPD, O2 Dependent, Pneumonia, Previously Intubated, Pulmonary Embolus, Pulmonary Fibrosis, Sleep Apnea - Alcohol/Substance Use Hx Alcohol Use: No - Smoking History Smoking history: Never smoked Have you smoked in the past 12 months: No Aproximately how many cigarettes per day: 5 Home Medications - Allergies Allergies/Adverse Reactions: Allergies Allergy/AdvReac Type Severity Reaction Status Date / Time Penicillins Allergy Intermediate unaware Verified 02/08/20 17:01 - Home Medications Home Medications: Ambulatory Orders Oxycodone HCl/Acetaminophen [Percocet 5-325 mg Tablet -] 1 - 2 tab PO Q4H PRN #30 tablet 08/01/13 Solifenacin Succinate [Vesicare] 5 mg PO DAILY 08/01/13 levoFLOXacin [Levaquin -] 500 mg PO DAILY #7 tablet 08/01/13 Family Medical History Family History: Unable to Obtain Review of Systems - Review of Systems Constitutional: reports: No Symptoms Eyes: reports: No Symptoms Neurological: reports: Headache, Incoordination, Numbness Physical Exam-Neuro Vital Signs: Vital Signs Temperature 98.1 F 02/09/20 12:35 Pulse Rate 65 02/09/20 12:35 Respiratory Rate 20 02/09/20 12:35 Blood Pressure 101/56 L 02/09/20 12:35 O2 Sat by Pulse Oximetry (%) 97 02/09/20 12:35 Constitutional: Yes: Well Nourished Neck: Yes: WNL Labs: CBC, BMP 02/08/20 17:28 02/08/20 17:28 INR, PTT INR 1.54 (0.83-1.09) H 02/08/20 17:28 - Neuro Exam Level Of Consciousness: Yes: Oriented to Person, Oriented to Place Eyes: Yes: NOEMI Speech: Garbled Dominant Hand: Right Mini Mental Exam: 22 Cranial Nerves II-XII Intact: Yes DTR's: 1+ Left Bicep, 1+ Right Bicep, 1+ Left Tricep, 1+ Right Tricep Response to light touch: Normal Response to pain prick: Normal Response to temperature: Normal Motor Strength: 3/5: Left Arm, Right Arm, Left Leg, Right Leg Gait: Deferred Imaging - Results Cat Scan: Image Reviewed Problem List - Problems (1) Dementia Code(s): F03.90 - UNSPECIFIED DEMENTIA WITHOUT BEHAVIORAL DISTURBANCE (2) AMS (altered mental status) Code(s): R41.82 - ALTERED MENTAL STATUS, UNSPECIFIED Assessment/Plan I don't know why the patient is on oxycodone 1. Trial of the Roxicodone one dosage. 2. Blood work that would include B12 TSH free T4 RPR. 3. CAT scan of the chest with no contrast to rule out Covid pneumonitis. 4.DVT prophylaxis. 5. Sepsis workup. 6. Namenda 5 mg once daily Vida Gaviria M.D., MSc [facility] [address] [place] [address] Office
[2020-02-10 01:49] VITALS: BMI 32.7
[2020-02-10 08:39] LABS: BASO % 0.4 % (0-2.0); EOS % 57.4 % (0-4.5); HEMOGLOBIN 9.3 GM/dL (10.7-15.3); LYMPH % 11.6 % (8-40); MCH 29.6 pg (25.7-33.7); MEAN CELL VOLUME 92.4 fl (80-96); MEAN PLT VOLUME 7.6 fl (7.5-11.1); NEUT % 26.6 % (42.8-82.8); PLATELET COUNT 417 K/MM3 (134-434); RBC 3.14 M/mm3 (3.60-5.2); WHITE BLOOD COUNT 10.8 K/mm3 (4.0-10.0)
[2020-02-10 09:15] LABS: ALBUMIN 1.3 g/dl (3.4-5.0); BLOOD UREA NITROGEN 13.2 mg/dL (7-18); CALCIUM 7.7 mg/dL (8.5-10.1); CREATININE 0.9 mg/dL (0.55-1.3); MAGNESIUM 2.7 mg/dL (1.8-2.4); POTASSIUM 4.2 mmol/L (3.5-5.1)
[2020-02-10 09:42] LABS: BILIRUBIN,TOTAL 0.9 mg/dL (0.2-1); TOT PROT 5.1 g/dl (6.4-8.2)
[2020-02-10] MEDS ORDERED: MEMANTINE HCL 5 MG TABLET (UD) PO SCH (10:00)
[2020-02-10 11:34] LABS: ANISOCYTOSIS 1+; MACROCYTOSIS 0; OVALOCYTE 1+; PLATELET ESTIMATE NORMAL; TEAR DROP CELLS 1+; TOXIC GRANULATION 1+
[2020-02-10] MEDS: ENOXAPARIN NA (PORCINE) 40 MG/0.4 ML DISP.SYRIN SQ SCH (11:37)
[2020-02-10] MEDS: BUDESONIDE/FORMETEROL FUMARATE 80/4.5 mcg INHALER IH SCH (11:38)
--- NOTE | 2020-02-10 12:22 | CON.ID ---
Consult Consult Specialty:: infectious diseases Referred by:: Krysten Reason for Consultation:: rash skin break down on the rt side of the sacrum and the thigh - History of Present Illness Chief Complaint: ams History of Present Illness: 74-year-old right-handed female patient with multiple medical problem including history of breast cancer who presents to the hospital with a chief complaint of difficulty with confusion patient was seen in the emergency room patient was stabilized patient with noted with mild confusion patient with history of baseline dementia there is no family member at the bedside patient was interviewed by herself patient was not able to give a clear history. patient also has chronic depigmentation also patient has skin breakdown and wounds on the body and has developed wounds where she has scratched - History Source History Provided By: Patient Limitations to Obtaining History: No Limitations - Past Medical History Pulmonary: Yes: Bronchitis. No: Asthma, Cancer, COPD, O2 Dependent, Pneumonia, Previously Intubated, Pulmonary Embolus, Pulmonary Fibrosis, Sleep Apnea - Alcohol/Substance Use Hx Alcohol Use: No - Smoking History Smoking history: Never smoked Have you smoked in the past 12 months: No Aproximately how many cigarettes per day: 5 Home Medications - Allergies Allergies/Adverse Reactions: Allergies Allergy/AdvReac Type Severity Reaction Status Date / Time Penicillins Allergy Intermediate unaware Verified 02/08/20 17:01 - Home Medications Home Medications: Ambulatory Orders Oxycodone HCl/Acetaminophen [Percocet 5-325 mg Tablet -] 1 - 2 tab PO Q4H PRN #30 tablet 08/01/13 Solifenacin Succinate [Vesicare] 5 mg PO DAILY 08/01/13 levoFLOXacin [Levaquin -] 500 mg PO DAILY #7 tablet 08/01/13 Review of Systems - Review of Systems Constitutional: reports: No Symptoms Eyes: reports: No Symptoms HENT: reports: No Symptoms Neck: reports: No Symptoms Cardiovascular: reports: No Symptoms Respiratory: reports: No Symptoms Gastrointestinal: reports: No Symptoms Musculoskeletal: reports: No Symptoms Integumentary: reports: Lesions, Rash Neurological: reports: No Symptoms Hematology/Lymphatic: reports: No Symptoms Psychiatric: reports: No Symptoms Physical Exam Vital Signs: Vital Signs Temperature 98.5 F 02/10/20 09:28 Pulse Rate 84 02/10/20 09:28 Respiratory Rate 20 02/10/20 09:28 Blood Pressure 103/56 L 02/10/20 09:28 O2 Sat by Pulse Oximetry (%) 100 02/10/20 00:00 Constitutional: Yes: Well Nourished, No Distress, Calm Cardiovascular: Yes: Regular Rate and Rhythm Respiratory: Yes: Regular, CTA Bilaterally Gastrointestinal: Yes: Normal Bowel Sounds, Soft Musculoskeletal: Yes: Other Integumentary: Yes: Skin Tear (multiple places), Other Wound/Incision: Yes: Open to air, Other (skin superficial) Psychiatric: Yes: Other Labs: CBC, BMP 02/10/20 08:12 02/10/20 08:12 Imaging - Results Chest X-ray: Report Reviewed, Image Reviewed Cat Scan: Report Reviewed, Image Reviewed Assessment/Plan this patient with multiple medical problems who comes in with wounds on the sacral region and leg wounds look clean i would start patient on oral doxy something for itching wound care rest as per the team
--- NOTE | 2020-02-10 12:41 | PN ---
Progress Note (short form) - Note Progress Note: PULMONARY VSS/AFEBRILE Constitutional: Yes: No Distress, Obese Eyes: Yes: Conjunctiva Clear, EOM Intact HENT: Yes: Atraumatic, Normocephalic Neck: Yes: Supple, Trachea Midline Cardiovascular: Yes: Regular Rate and Rhythm Respiratory: Yes: Cough, Diminished, On Nasal O2, Rhonchi. No: Accessory Muscle Use, Rales, SOB, SOB on Exertion, Stridor, Tachypnea, Wheezes ...Inspection: Yes: WNL Gastrointestinal: Yes: Normal Bowel Sounds, Soft, Abdomen, Obese Musculoskeletal: Yes: WNL Extremities: Yes: WNL Edema: No Peripheral Pulses WNL: Yes Integumentary: Yes: Other (Bullous lesions ) Labs: NOTED Chest X-ray: Report Reviewed, Image Reviewed Cat Scan: Report Reviewed, Image Reviewed Problem List - Problems (1) ILD (interstitial lung disease) Code(s): J84.9 - INTERSTITIAL PULMONARY DISEASE, UNSPECIFIED (2) SOB (shortness of breath) Code(s): R06.02 - SHORTNESS OF BREATH (3) Cough Code(s): R05 - COUGH (4) Smoker Code(s): F17.200 - NICOTINE DEPENDENCE, UNSPECIFIED, UNCOMPLICATED (5) COPD (chronic obstructive pulmonary disease) Code(s): J44.9 - CHRONIC OBSTRUCTIVE PULMONARY DISEASE, UNSPECIFIED (6) Lung nodule seen on imaging study Code(s): R91.1 - SOLITARY PULMONARY NODULE (7) Multiple lung nodules on CT Code(s): R91.8 - OTHER NONSPECIFIC ABNORMAL FINDING OF LUNG FIELD (8) AMS (altered mental status) Code(s): R41.82 - ALTERED MENTAL STATUS, UNSPECIFIED (9) Breast cancer Code(s): C50.919 - MALIGNANT NEOPLASM OF UNSP SITE OF UNSPECIFIED FEMALE BREAST Assessment/Plan Lung nodules can be followed as an outpatient : PET scan may be useful due to the size of the lesions No smoking should be enforced Monitor off systemic steroids BD TX PRN Unclear what chemotherapy she is receiving : (?) contributing to AMS PFTs as an outpatient Sailaja ACOSTA MD
--- NOTE | 2020-02-10 12:48 | PN ---
Progress Note, Physician Chief Complaint: denies CP/SOB/palps - Current Medication List Current Medications: Active Medications Albuterol Sulfate (Ventolin Hfa Inhaler -) 2 puff IH Q4H PRN PRN Reason: SHORT OF BREATH/WHEEZING Budesonide/Formoterol Fumarate (Symbicort 80/4.5mcg -) 2 puff IH BID [facility] Last Admin: 02/10/20 11:38 Dose: 2 puff Documented by: Doxycycline Hyclate (Vibramycin -) 100 mg PO BID@1000,1800 [facility] Enoxaparin Sodium (Lovenox -) 40 mg SQ DAILY [facility] Last Admin: 02/10/20 11:37 Dose: 40 mg Documented by: Hydroxyzine HCl (Atarax Liquid -) 10 mg PO Q6H PRN PRN Reason: FOR ITCHING Melatonin (Melatonin) 10 mg PO HS [facility] Last Admin: 02/09/20 22:18 Dose: 10 mg Documented by: Memantine (Namenda -) 5 mg PO DAILY [facility] Triamcinolone Acetonide (Aristocort 0.1% Ointment -) 1 applic TP BID [facility] Last Admin: 02/09/20 22:18 Dose: 1 applic Documented by: - Objective Vital Signs: Vital Signs Temperature 98.5 F 02/10/20 09:28 Pulse Rate 84 02/10/20 09:28 Respiratory Rate 20 02/10/20 09:28 Blood Pressure 103/56 L 02/10/20 09:28 O2 Sat by Pulse Oximetry (%) 100 02/10/20 00:00 Constitutional: Yes: No Distress, Calm Cardiovascular: Yes: Regular Rate and Rhythm Respiratory: Yes: CTA Bilaterally Gastrointestinal: Yes: Soft (nt) Edema: No Peripheral Pulses WNL: Yes Integumentary: Yes: Other (mulitple cutaneous nodules diffusely) Neurological: Yes: Alert, Oriented ...Motor Strength: WNL Labs: CBC, BMP 02/10/20 08:12 02/10/20 08:12 INR, PTT INR 1.54 (0.83-1.09) H 02/08/20 17:28 Assessment/Plan echo 01/2020: nl lv/rv, no sig valve path tele: sr a/p: 74 f hx dementia, breast ca, brought to er by draw frame tender for ams. elevated bnp: -no signs chf on exam or imaging. no signs acs. -echo unremarkable here ams: -possible med related vs uti, plans per primary
--- NOTE | 2020-02-10 12:51 | PN ---
Progress Note (short form) - Note Progress Note: PULMONARY ADDENDUM TO PROGRESS NOTE PROGRESSIVE EOSINOPHILIA WOULD CONSIDER ALLERGIC VS IMMUNOLOGIC VS NEOPLASTIC ETIOLOGIES Sailaja ACOSTA MD
[2020-02-10] MEDS: TRIAMCINOLONE ACET 0.1% OINT 15 GM TUBE TP SCH (12:53)
[2020-02-10] MEDS: CEFTRIAXONE 1 GM in DEXTROSE 5%-WATER - 50 ML IVPB SCH (12:54)
[2020-02-10] MEDS: DOXYCYCLINE HYCLATE 100 MG CAPSULE PO SCH ×2 (13:57→18:06)
[2020-02-10 14:36] LABS: PHOSPHOROUS 4.2 mg/dL (2.5-4.9)
[2020-02-10 15:59] VITALS: BP 110/60; PULSE 77; TEMP 97.4
== END 2020-02-10 18:43 | disposition home health service (06) | DRG 381 ==
LOC: JER 16:39 → JERBED 02-09 01:50 → J6WEST-2 02-09 21:02
PROVIDERS: ADMIT Internal Medicine; ATTEND Nurse Practitioner Family
DX: L10.0 Pemphigus vulgaris (principal); L89.212 Pressure ulcer of right hip, stage 2; L89.102 Pressure ulcer of unspecified part of back, stage 2; F03.90 Unspecified dementia, unspecified severity, without behavioral disturbance, psychotic disturbance, mood disturbance, and anxiety; Z85.3 Personal history of malignant neoplasm of breast; I51.7 Cardiomegaly; R91.8 Other nonspecific abnormal finding of lung field; E66.9 Obesity, unspecified; Z68.32 Body mass index [BMI] 32.0-32.9, adult; J44.9 Chronic obstructive pulmonary disease, unspecified; R41.82 Altered mental status, unspecified; D64.9 Anemia, unspecified; R00.1 Bradycardia, unspecified; E88.09 Other disorders of plasma-protein metabolism, not elsewhere classified; L89.892 Pressure ulcer of other site, stage 2
CPT/HCPCS: 36415; 70450-TC; 71045-TC-FY; 71250-TC; 71275-TC; 80053; 80061; 81003; 82607; 82728; 82746; 82962; 83540; 83550; 83721; 83735; 83880; 84100; 84439; 84443; 84466; 84484; 85025; 85610; 85730; 86780; 87086; 93005; 93010; 93306-TC; 99285-25; Q9967; U0003

== ENCOUNTER 2020-07-17 14:26 | Inpatient (IN) | payer OTHER ==
[2020-07-17 16:49] LABS: BASO % 1.1 % (0-2.0); HEMOGLOBIN 11.1 GM/dL (10.7-15.3); LYMPH % 21.8 % (8-40); MCH 31.1 pg (25.7-33.7); MCHC 32.7 g/dl (32.0-36.0); MEAN PLT VOLUME 7.5 fl (7.5-11.1); MONO % 6.3 % (3.8-10.2); NEUT % 44.8 % (42.8-82.8); PLATELET COUNT 376 K/MM3 (134-434); RBC 3.58 M/mm3 (3.60-5.2); RDW 15.4 % (11.6-15.6); WHITE BLOOD COUNT 8.8 K/mm3 (4.0-10.0)
[2020-07-17 16:58] LABS: INR 1.06 (0.83-1.09)
[2020-07-17 17:01] LABS: ACTIVATED PTT 24.5 SECONDS (25.2-36.5)
[2020-07-17 17:13] LABS: POTASSIUM 4.4 mmol/L (3.5-5.1)
[2020-07-17 17:15] LABS: CALCIUM 8.3 mg/dL (8.5-10.1)
[2020-07-17 17:16] LABS: ALBUMIN 1.6 g/dl (3.4-5.0); BLOOD UREA NITROGEN 13.9 mg/dL (7-18); MAGNESIUM 2.3 mg/dL (1.8-2.4)
[2020-07-17 17:20] LABS: BILIRUBIN,TOTAL 0.4 mg/dL (0.2-1); TOT PROT 6.7 g/dl (6.4-8.2)
[2020-07-17 17:47] LABS: URINE APPEARANCE CLEAR; URINE BILIRUBIN NEGATIVE (NEGATIVE); URINE COLOR DK YELLOW; URINE GLUCOSE (UA) NEGATIVE (NEGATIVE); URINE KETONE TRACE (NEGATIVE); URINE LEUK ESTERASE NEGATIVE (NEGATIVE); URINE NITRITE NEGATIVE (NEGATIVE); URINE PROTEIN NEGATIVE (NEGATIVE)
[2020-07-17] MEDS ORDERED: LACTATED RINGERS SOLUTION 1,000 ML IV STA (21:51)
[2020-07-17] MEDS ORDERED: MINERAL OIL/PETROLAT/WATER TOPICAL CREAM 454 GM JAR TP PRN (21:53)
[2020-07-17] MEDS: BUDESONIDE/FORMETEROL FUMARATE 80/4.5 mcg INHALER IH SCH (23:53)
[2020-07-18] MEDS ORDERED: SODIUM CHLORIDE 1,000 ML IV SCH (03:00)
[2020-07-18 05:47] VITALS: BMI 24.5
[2020-07-18 08:54] LABS: HEMATOCRIT 32.4 % (32.4-45.2); HEMOGLOBIN 10.5 GM/dL (10.7-15.3); MCH 31.2 pg (25.7-33.7); MCHC 32.4 g/dl (32.0-36.0); MEAN CELL VOLUME 96.2 fl (80-96); MEAN PLT VOLUME 7.3 fl (7.5-11.1); PLATELET COUNT 309 K/MM3 (134-434); RBC 3.37 M/mm3 (3.60-5.2); RDW 15.3 % (11.6-15.6); WHITE BLOOD COUNT 7.6 K/mm3 (4.0-10.0)
[2020-07-18 09:15] LABS: POTASSIUM 3.6 mmol/L (3.5-5.1)
[2020-07-18 09:51] LABS: BLOOD UREA NITROGEN 12.6 mg/dL (7-18); CALCIUM 7.8 mg/dL (8.5-10.1)
[2020-07-18 09:52] LABS: ALBUMIN 1.4 g/dl (3.4-5.0); MAGNESIUM 2.2 mg/dL (1.8-2.4)
[2020-07-18 09:55] LABS: CREATININE 0.8 mg/dL (0.55-1.3); PHOSPHOROUS 3.8 mg/dL (2.5-4.9)
[2020-07-18 09:56] LABS: BILIRUBIN,TOTAL 0.5 mg/dL (0.2-1)
[2020-07-18] MEDS: BUDESONIDE/FORMETEROL FUMARATE 80/4.5 mcg INHALER IH SCH ×2 (10:14→23:43)
[2020-07-18] MEDS: MEMANTINE HCL 5 MG TABLET (UD) PO SCH (10:14)
[2020-07-18] MEDS: SOLIFENACIN SUCCINATE 5 MG TAB PO SCH (10:14)
[2020-07-18] MEDS: ENOXAPARIN NA (PORCINE) 40 MG/0.4 ML DISP.SYRIN SQ SCH (10:14)
[2020-07-18] MEDS ORDERED: ACETAMINOPHEN 325 MG TABLET (FP) PO PRN ×2 (16:30→16:46)
[2020-07-18] MEDS: AMINO ACIDS/PROTEIN HYDROLYS 30 ML LIQUID.PKT PO SCH (16:41)
[2020-07-18] MEDS ORDERED: PT OWN MED DRAWER 7, Y5N ONE (23:20)
[2020-07-19] MEDS: AMINO ACIDS/PROTEIN HYDROLYS 30 ML LIQUID.PKT PO SCH ×2 (08:46→17:43)
[2020-07-19 10:21] LABS: BASO % 0.4 % (0-2.0); EOS % 6.9 % (0-4.5); HEMATOCRIT 33.5 % (32.4-45.2); HEMOGLOBIN 10.7 GM/dL (10.7-15.3); LYMPH % 13.3 % (8-40); MCH 30.7 pg (25.7-33.7); MCHC 31.9 g/dl (32.0-36.0); MEAN CELL VOLUME 96.5 fl (80-96); MEAN PLT VOLUME 7.6 fl (7.5-11.1); NEUT % 70.4 % (42.8-82.8); PLATELET COUNT 294 K/MM3 (134-434); RBC 3.47 M/mm3 (3.60-5.2); RDW 15.2 % (11.6-15.6); WHITE BLOOD COUNT 8.6 K/mm3 (4.0-10.0)
[2020-07-19] MEDS: BUDESONIDE/FORMETEROL FUMARATE 80/4.5 mcg INHALER IH SCH ×2 (10:28→22:06)
[2020-07-19] MEDS: ENOXAPARIN NA (PORCINE) 40 MG/0.4 ML DISP.SYRIN SQ SCH (10:28)
[2020-07-19] MEDS: MULTIVITAMINS (DAILY MVI) TABLET (FP) PO SCH (10:28)
[2020-07-19] MEDS: MEMANTINE HCL 5 MG TABLET (UD) PO SCH (10:28)
[2020-07-19] MEDS: SOLIFENACIN SUCCINATE 5 MG TAB PO SCH (10:28)
[2020-07-19 10:40] LABS: POTASSIUM 3.5 mmol/L (3.5-5.1)
[2020-07-19 10:53] LABS: ALBUMIN 1.4 g/dl (3.4-5.0); CALCIUM 7.9 mg/dL (8.5-10.1)
[2020-07-19 10:54] LABS: MAGNESIUM 2.2 mg/dL (1.8-2.4)
[2020-07-19 10:57] LABS: CREATININE 0.8 mg/dL (0.55-1.3)
[2020-07-19 10:58] LABS: BILIRUBIN,TOTAL 0.7 mg/dL (0.2-1); TOT PROT 5.9 g/dl (6.4-8.2)
[2020-07-20 11:21] LABS: POTASSIUM 3.4 mmol/L (3.5-5.1)
[2020-07-20 11:23] LABS: BLOOD UREA NITROGEN 15.5 mg/dL (7-18); CALCIUM 8.2 mg/dL (8.5-10.1); MAGNESIUM 2.3 mg/dL (1.8-2.4)
[2020-07-20 11:26] LABS: CREATININE 0.8 mg/dL (0.55-1.3)
[2020-07-20] MEDS: MEMANTINE HCL 5 MG TABLET (UD) PO SCH (11:56)
[2020-07-20] MEDS: ENOXAPARIN NA (PORCINE) 40 MG/0.4 ML DISP.SYRIN SQ SCH (11:56)
[2020-07-20] MEDS: SOLIFENACIN SUCCINATE 5 MG TAB PO SCH (11:56)
[2020-07-20] MEDS: AMINO ACIDS/PROTEIN HYDROLYS 30 ML LIQUID.PKT PO SCH ×2 (11:56→18:49)
[2020-07-20] MEDS: MULTIVITAMINS (DAILY MVI) TABLET (FP) PO SCH (11:56)
[2020-07-20] MEDS: BUDESONIDE/FORMETEROL FUMARATE 80/4.5 mcg INHALER IH SCH ×2 (11:57→21:48)
[2020-07-20] MEDS ORDERED: POTASSIUM CHLORIDE ORAL LIQUID 20 MEQ/15 ML PO ONE (15:05)
[2020-07-21] MEDS: MEMANTINE HCL 5 MG TABLET (UD) PO SCH (10:12)
[2020-07-21] MEDS: ENOXAPARIN NA (PORCINE) 40 MG/0.4 ML DISP.SYRIN SQ SCH (10:12)
[2020-07-21] MEDS: AMINO ACIDS/PROTEIN HYDROLYS 30 ML LIQUID.PKT PO SCH (10:12)
[2020-07-21] MEDS: SOLIFENACIN SUCCINATE 5 MG TAB PO SCH (10:13)
[2020-07-21] MEDS: MULTIVITAMINS (DAILY MVI) TABLET (FP) PO SCH (10:13)
[2020-07-21] MEDS: BUDESONIDE/FORMETEROL FUMARATE 80/4.5 mcg INHALER IH SCH (10:13)
[2020-07-21 14:53] VITALS: BP 104/62; PULSE 99; TEMP 98.6
== END 2020-07-21 15:12 | DRG 815 ==
LOC: JER 14:26 → JERBED 19:43 → J5S 07-18 04:35
PROVIDERS: ADMIT Hospitalist
DX: T74.91XA Unspecified adult maltreatment, confirmed, initial encounter (principal); R62.7 Adult failure to thrive; Z68.21 Body mass index [BMI] 21.0-21.9, adult; D72.19 Other eosinophilia; L10.0 Pemphigus vulgaris; R13.10 Dysphagia, unspecified; F03.90 Unspecified dementia, unspecified severity, without behavioral disturbance, psychotic disturbance, mood disturbance, and anxiety; J44.9 Chronic obstructive pulmonary disease, unspecified; F17.210 Nicotine dependence, cigarettes, uncomplicated; D05.91 Unspecified type of carcinoma in situ of right breast; R91.8 Other nonspecific abnormal finding of lung field; Y07.5 Non-family member, perpetrator of maltreatment and neglect; Z88.0 Allergy status to penicillin
CPT/HCPCS: 36415; 70450-TC; 71045-TC-FY; 80048; 80053; 80061; 81003; 82607; 82746; 83036; 83721; 83735; 84100; 84443; 84484; 85025; 85027; 85610; 85730; 87086; 93005; 93010; 97162-GP; 99285-25; C9803; U0003

== ENCOUNTER 2023-04-22 10:22 | Inpatient (IN) | payer OTHER ==
[2023-04-22] MEDS ORDERED: SODIUM CHLORIDE 1,000 ML IV STA ×2 (11:03→11:56)
[2023-04-22 11:15] VITALS: BMI 22.6
[2023-04-22 11:23] LABS: BASO % 0.1 % (0-2.0); HEMATOCRIT 32.9 % (32.4-45.2); HEMOGLOBIN 10.9 GM/dL (10.7-15.3); LYMPH % 11.1 % (8-40); MCH 29.9 pg (25.7-33.7); MCHC 33.2 g/dl (32.0-36.0); MEAN CELL VOLUME 90.1 fl (80-96); MEAN PLT VOLUME 6.9 fl (7.5-11.1); MONO % 1.9 % (3.8-10.2); NEUT % 86.9 % (42.8-82.8); PLATELET COUNT 248 10^3/uL (134-434); RBC 3.65 M/mm3 (3.60-5.2); RDW 14.3 % (11.6-15.6); VENOUS BASE EXCESS 5.9 mmol/L (-2-2); VENOUS O2 SATURATION 25.2 % (70-80); VENOUS PCO2 45.1 mmHg (38-52); VENOUS PH 7.45 (7.310-7.410)
[2023-04-22 11:30] LABS: INR 1.17 (0.83-1.09); PROTHROMBIN TIME (PATIENT) 13.5 SEC (9.7-13.0)
[2023-04-22 11:33] LABS: ACTIVATED PTT 30.9 SECONDS (25.2-36.5)
[2023-04-22 11:50] LABS: CHLORIDE 98 mmol/L (98-107); SODIUM 138 mmol/L (136-145)
[2023-04-22 11:53] LABS: BLOOD UREA NITROGEN 55.6 mg/dL (7-18); CO2 29 mmol/L (21-32); GLUCOSE,RANDOM 158 mg/dL (74-106)
[2023-04-22 11:56] LABS: CREATININE 2.1 mg/dL (0.55-1.3); SGOT/AST 19 U/L (15-37); SGPT/ALT 51 U/L (13-61)
[2023-04-22 11:57] LABS: BILIRUBIN,TOTAL 0.5 mg/dL (0.2-1); TOT PROT 5.2 g/dl (6.4-8.2)
[2023-04-22 11:59] LABS: ALK PHOS 120 U/L (45-117); LACTIC ACID 3.9 mmol/L (0.4-2.0)
[2023-04-22] MEDS ORDERED: AZTREONAM 2 GM in DEXTROSE 5%-WATER 100 ML IVPB ONE (12:08)
[2023-04-22] MEDS ORDERED: VANCOMYCIN 1,000 MG in DEXTROSE 5%-WATER - 250 ML IVPB ONE (12:08)
[2023-04-22 12:09] LABS: ARTERIAL BLD GAS O2 SATURATION 96.4 % (95-98); ARTERIAL BLOOD GAS BASE EXCESS 3.6 mmol/L (-2-2); ARTERIAL BLOOD GAS pH 7.481 (7.350-7.450)
[2023-04-22 12:10] LABS: ALLENS TEST POSITIVE
[2023-04-22 12:21] LABS: ANION GAP 11 MMOL/L (8-16); CALCIUM 6.8 mg/dL (8.5-10.1); POTASSIUM 1.7 mmol/L (3.5-5.1)
[2023-04-22 12:28] LABS: EPI CELLS 6 /uL (0-25.1); HYALINE CASTS 1 /uL (0-3.1); PH,URINE 5.5 (5.0-8.0); URINE APPEARANCE TURBID; URINE BACTERIA >9,000 /uL (0-1359); URINE BILIRUBIN NEGATIVE (NEGATIVE); URINE COLOR YELLOW; URINE GLUCOSE (UA) NEGATIVE (NEGATIVE); URINE KETONE NEGATIVE (NEGATIVE); URINE LEUK ESTERASE 3+ (NEGATIVE); URINE NITRITE POSITIVE (NEGATIVE); URINE PROTEIN 1+ (NEGATIVE); URINE RBC 88 /uL (0-23.9); URINE UROBILINOGEN 0.2 mg/dL (0.2-1.0); URINE WBC 6568 /uL (0-25.8)
[2023-04-22] MEDS ORDERED: VANCOMYCIN 1 GRAM (PRE-DOCKED) 1,000 MG/250 ML BAG IVPB ONE (12:29)
[2023-04-22] MEDS ORDERED: AZTREONAM 2 GM VIAL (RESTRICTED TO ID) ONE (12:30)
[2023-04-22] MEDS ORDERED: NOREPINEPHRINE BITARTRATE/D5W 8 MG/250 ML BAG IVPB ONE ×2 (12:30→20:18)
[2023-04-22] MEDS ORDERED: MAGNESIUM SULFATE IN WATER 2 GM/50 ML IVPB IVPB ONE ×2 (12:31→13:22)
[2023-04-22] MEDS: KCL 10 MEQ IVPB 10 MEQ/100 ML INFUS.BAG IVPB SCH ×4 (12:36→14:11)
[2023-04-22 13:08] LABS: MAGNESIUM 1.7 mg/dL (1.8-2.4); PHOSPHOROUS 1.6 mg/dL (2.5-4.9)
[2023-04-22] MEDS: NOREPINEPHRINE BITARTRATE/D5W 8 MG/250 ML BAG IVPB SCH (13:31)
[2023-04-22] MEDS ORDERED: NOREPINEPHRINE BITARTRATE 16,000 MCG in SODIUM CHLORIDE 484 ML IV SCH (14:15)
[2023-04-22] MEDS ORDERED: NOREPINEPHRINE BITARTRATE 4,000 MCG in DEXTROSE 5%-WATER - 496 ML IV SCH (14:15)
[2023-04-22 14:46] LABS: MAGNESIUM 1.4 mg/dL (1.8-2.4)
[2023-04-22] MEDS: KCL 20 MEQ PREMIX BAG 100 ML IVPB SCH ×3 (14:50→17:56)
[2023-04-22 14:52] LABS: PHOSPHOROUS 1.2 mg/dL (2.5-4.9)
[2023-04-22] MEDS ORDERED: HEPARIN NA (PORCINE) 5,000 UNITS/ML 1ML VIAL ONE (16:23)
[2023-04-22] MEDS: HEPARIN NA (PORCINE) 5,000 UNITS/ML 1ML VIAL SQ SCH ×2 (16:24→22:13)
[2023-04-22] MEDS ORDERED: LACTATED RINGERS SOLUTION 1,000 ML/1,000 ML INFUS.BAG IV ONE (16:34)
[2023-04-22] MEDS ORDERED: LACTATED RINGERS SOLUTION 1,000 ML/1,000 ML INFUS.BAG IV SCH (16:45)
[2023-04-22 17:11] LABS: CHLORIDE 104 mmol/L (98-107); SODIUM 141 mmol/L (136-145)
[2023-04-22 17:13] LABS: BLOOD UREA NITROGEN 51.3 mg/dL (7-18); CO2 28 mmol/L (21-32); GLUCOSE,RANDOM 196 mg/dL (74-106); MAGNESIUM 2.2 mg/dL (1.8-2.4)
[2023-04-22 17:16] LABS: CREATININE 1.7 mg/dL (0.55-1.3)
[2023-04-22 17:26] LABS: ANION GAP 10 MMOL/L (8-16); CALCIUM 6.2 mg/dL (8.5-10.1); LACTIC ACID 2.2 mmol/L (0.4-2.0); PHOSPHOROUS 1.1 mg/dL (2.5-4.9); POTASSIUM 1.8 mmol/L (3.5-5.1)
[2023-04-22] MEDS ORDERED: POTASSIUM PHOSPHATE 30 MM in DEXTROSE 5%-WATER - 500 ML IVPB ONE (17:28)
[2023-04-22] MEDS ORDERED: LACTATED RINGERS SOLUTION 1,000 ML/1,000 ML INFUS.BAG IV STA (21:47)
[2023-04-22] MEDS ORDERED: VASOPRESSIN 20 UNITS/ML VIAL IV ONE (22:03)
[2023-04-22] MEDS: MUPIROCIN 2% TOPICAL OINTMENT FOR DECOLONIZATION NS SCH (22:13)
[2023-04-22] MEDS: VASOPRESSIN 40 UNITS/100 ML BAG IV SCH (22:14)
[2023-04-22] MEDS: CHLORHEXIDINE GLUCONATE 4% CLEANSER FOR DECOLONIZATION TP SCH (22:14)
[2023-04-22] MEDS: HYDROCORTISONE SOD SUCCINATE 100 MG/2 ML VIAL IVPB SCH (23:25)
[2023-04-22] MEDS ORDERED: LIDOCAINE HCL 1%, 10 MG/ML (20ML VIAL) INF ONE (23:26)
[2023-04-23] MEDS ORDERED: LACTATED RINGERS SOLUTION 1000 ML INFUS.BAG IV ONE (01:21)
[2023-04-23] MEDS: AZTREONAM 2 GM in DEXTROSE 5%-WATER 100 ML IVPB SCH ×4 (01:58→17:23)
[2023-04-23] MEDS ORDERED: ACETAMINOPHEN 1000 MG/100 ML BAG IVPB ONE (02:27)
[2023-04-23] MEDS ORDERED: ACETAMINOPHEN INJECTION 100 ML IVPB ONE (02:30)
[2023-04-23] MEDS: HYDROCORTISONE SOD SUCCINATE 100 MG/2 ML VIAL IVPB SCH ×4 (04:30→22:45)
[2023-04-23] MEDS: HEPARIN NA (PORCINE) 5,000 UNITS/ML 1ML VIAL SQ SCH ×3 (06:08→21:35)
[2023-04-23 07:16] LABS: CHLORIDE 104 mmol/L (98-107); SODIUM 138 mmol/L (136-145)
[2023-04-23 07:18] LABS: HEMATOCRIT 26.5 % (32.4-45.2); HEMOGLOBIN 8.6 GM/dL (10.7-15.3); MCH 30.4 pg (25.7-33.7); MCHC 32.7 g/dl (32.0-36.0); MEAN CELL VOLUME 93.1 fl (80-96); MEAN PLT VOLUME 7.7 fl (7.5-11.1); PLATELET COUNT 206 10^3/uL (134-434); RBC 2.84 M/mm3 (3.60-5.2); RDW 15.6 % (11.6-15.6); WHITE BLOOD COUNT 17.4 K/mm3 (4.0-10.0)
[2023-04-23 07:21] LABS: BLOOD UREA NITROGEN 46.5 mg/dL (7-18); CO2 18 mmol/L (21-32); GLUCOSE,RANDOM 161 mg/dL (74-106)
[2023-04-23 07:22] LABS: MAGNESIUM 1.7 mg/dL (1.8-2.4)
[2023-04-23 07:24] LABS: PHOSPHOROUS 4.6 mg/dL (2.5-4.9); SGOT/AST 23 U/L (15-37); SGPT/ALT 46 U/L (13-61)
[2023-04-23 07:25] LABS: CREATININE 1.5 mg/dL (0.55-1.3)
[2023-04-23 07:26] LABS: BILIRUBIN,TOTAL 0.4 mg/dL (0.2-1); TOT PROT 4.1 g/dl (6.4-8.2)
[2023-04-23 07:27] LABS: ALK PHOS 90 U/L (45-117)
[2023-04-23 07:32] LABS: ALBUMIN 0.8 g/dl (3.4-5.0); ANION GAP 16 MMOL/L (8-16); CALCIUM 6.2 mg/dL (8.5-10.1); POTASSIUM 2.1 mmol/L (3.5-5.1)
[2023-04-23] MEDS ORDERED: ACETAMINOPHEN 1000 MG/100 ML BAG IVPB PRN (08:35)
[2023-04-23] MEDS ORDERED: MAGNESIUM 2GM/50ML STERILE WATER IVPB IVPB ONE (08:45)
[2023-04-23 09:03] LABS: ANISOCYTOSIS 0; HELMET CELLS 0; HOWELL-JOLLY BODIES 0; MACROCYTOSIS 0; OVALOCYTE 0; ROULEAU 0; SICKELED CELLS 0; TARGET CELLS 0; TEAR DROP CELLS 0; TOXIC GRANULATION 0
[2023-04-23] MEDS: KCL 20 MEQ PREMIX BAG 100 ML IVPB SCH ×3 (10:22→15:34)
[2023-04-23] MEDS: MUPIROCIN 2% TOPICAL OINTMENT FOR DECOLONIZATION NS SCH ×2 (10:23→21:35)
[2023-04-23] MEDS: FLUDROCORTISONE ACETATE 0.1 MG TABLET (FP) PO SCH (10:23)
[2023-04-23] MEDS ORDERED: POTASSIUM CHLORIDE TABS 20 MEQ TABLET.ER (FP) PO ONE (10:34)
[2023-04-23] MEDS: NOREPINEPHRINE BITARTRATE/D5W 8 MG/250 ML BAG IVPB SCH ×2 (12:59→21:18)
[2023-04-23] MEDS ORDERED: VANCOMYCIN/WATER FOR INJ (PEG) 1,000 MG/200 ML BAG IVPB SCH (15:00)
[2023-04-23] MEDS: POTASSIUM CHLORIDE ORAL LIQUID 20 MEQ/15 ML PO SCH ×2 (15:39→21:40)
[2023-04-23] MEDS: VANCOMYCIN/WATER FOR INJ (PEG) 1,000 MG/200 ML BAG IVPB SCH ×2 (15:59→16:14)
[2023-04-23 16:37] LABS: CHLORIDE 102 mmol/L (98-107); POTASSIUM 3.1 mmol/L (3.5-5.1); SODIUM 137 mmol/L (136-145)
[2023-04-23 16:39] LABS: ALBUMIN 0.8 g/dl (3.4-5.0); ANION GAP 22 MMOL/L (8-16); BLOOD UREA NITROGEN 42.5 mg/dL (7-18); CO2 13 mmol/L (21-32); GLUCOSE,RANDOM 183 mg/dL (74-106); MAGNESIUM 2.9 mg/dL (1.8-2.4)
[2023-04-23 16:42] LABS: CREATININE 1.7 mg/dL (0.55-1.3)
[2023-04-23 16:43] LABS: SGOT/AST 59 U/L (15-37)
[2023-04-23 16:44] LABS: BILIRUBIN,TOTAL 0.4 mg/dL (0.2-1); TOT PROT 3.8 g/dl (6.4-8.2)
[2023-04-23 16:45] LABS: ALK PHOS 93 U/L (45-117)
[2023-04-23] MEDS: KCL 10 MEQ IVPB 10 MEQ/100 ML INFUS.BAG IVPB SCH ×2 (17:30→18:28)
[2023-04-23] MEDS ORDERED: SODIUM BICARBONATE 8.4% 50 MEQ/50 ML DISP.SYRIN IVPUSH ONE (17:34)
[2023-04-23 17:44] LABS: CALCIUM 6.7 mg/dL (8.5-10.1); SGPT/ALT 60 U/L (13-61)
[2023-04-23] MEDS: BETAMETHASONE DIPR 0.05% OINT 45 GM TUBE TP SCH (18:05)
[2023-04-23] MEDS: CEFEPIME 1 GM in DEXTROSE 5%-WATER 100 ML IVPB SCH (18:28)
[2023-04-23 21:03] LABS: ALLENS TEST POSITIVE; ARTERIAL BLOOD GAS BASE EXCESS -22.9 mmol/L (-2-2); ARTERIAL BLOOD GAS PO2 97.7 mmHg (80-100)
[2023-04-23 21:05] LABS: ARTERIAL BLOOD GAS pH 7.032 (7.350-7.450)
[2023-04-23] MEDS ORDERED: KCL 20 MEQ PREMIX BAG 100 ML IVPB ONE (21:08)
[2023-04-23] MEDS: MUPIROCIN CA 2% TOPICAL CREAM 15 GM TUBE TP SCH (21:35)
[2023-04-23] MEDS: VASOPRESSIN 40 UNITS/100 ML BAG IV SCH (21:40)
[2023-04-23] MEDS: SODIUM BICARBONATE 8.4% - 150 MEQ in DEXTROSE 5%-WATER - 950 ML IVPB SCH (21:50)
[2023-04-23] MEDS ORDERED: PRAMOXINE HCL TP SCH (22:00)
[2023-04-23] MEDS ORDERED: ZINC ACETATE TP SCH (22:00)
[2023-04-23] MEDS ORDERED: OCULAR LUBRICANT OPHTHALMIC OINTMENT 7 GM TUBE OU SCH (22:00)
[2023-04-23] MEDS ORDERED: [UNRECOGNIZED DRUG - OTHER] TP SCH (22:00)
[2023-04-23] MEDS ORDERED: SODIUM BICARBONATE 8.4% 50 MEQ/50 ML DISP.SYRIN IVPUSH STA (22:18)
[2023-04-23] MEDS: ARTIFICIAL TEARS (POLYVINYL ALCOHOL) OPTH DROPS OU SCH (22:20)
[2023-04-23 22:45] LABS: LACTIC ACID 18.6 mmol/L (0.4-2.0)
[2023-04-24] MEDS: HYDROCORTISONE SOD SUCCINATE 100 MG/2 ML VIAL IVPB SCH ×2 (05:00→11:17)
[2023-04-24] MEDS: SODIUM BICARBONATE 8.4% - 150 MEQ in DEXTROSE 5%-WATER - 950 ML IVPB SCH (06:00)
[2023-04-24] MEDS: HEPARIN NA (PORCINE) 5,000 UNITS/ML 1ML VIAL SQ SCH (06:25)
[2023-04-24] MEDS: ARTIFICIAL TEARS (POLYVINYL ALCOHOL) OPTH DROPS OU SCH (06:35)
[2023-04-24 07:29] LABS: HEMATOCRIT 22.3 % (32.4-45.2); MCH 29.7 pg (25.7-33.7); MCHC 29.6 g/dl (32.0-36.0); MEAN CELL VOLUME 100.4 fl (80-96); MEAN PLT VOLUME 7.9 fl (7.5-11.1); PLATELET COUNT 132 10^3/uL (134-434); RBC 2.22 M/mm3 (3.60-5.2); RDW 17.5 % (11.6-15.6); WHITE BLOOD COUNT 29.7 K/mm3 (4.0-10.0)
[2023-04-24 07:39] LABS: CHLORIDE 101 mmol/L (98-107); SODIUM 137 mmol/L (136-145)
[2023-04-24 07:42] LABS: BLOOD UREA NITROGEN 40.6 mg/dL (7-18); CO2 11 mmol/L (21-32); GLUCOSE,RANDOM 217 mg/dL (74-106); MAGNESIUM 2.8 mg/dL (1.8-2.4)
[2023-04-24 07:44] LABS: SGPT/ALT 116 U/L (13-61)
[2023-04-24 07:45] LABS: CREATININE 2.2 mg/dL (0.55-1.3); SGOT/AST 292 U/L (15-37)
[2023-04-24 07:46] LABS: TOT PROT 2.8 g/dl (6.4-8.2)
[2023-04-24 07:47] LABS: ALK PHOS 73 U/L (45-117); BILIRUBIN,TOTAL 0.6 mg/dL (0.2-1)
[2023-04-24 07:50] LABS: ALBUMIN 0.5 g/dl (3.4-5.0); ANION GAP 25 MMOL/L (8-16)
[2023-04-24] MEDS ORDERED: AMINO ACIDS/PROTEIN HYDROLYS 30 ML LIQUID.PKT PO SCH (08:00)
[2023-04-24] MEDS ORDERED: INSULIN (NOVOLOG) ASPART 100 UNITS/ML 10ML VIAL SQ ONE (08:03)
[2023-04-24] MEDS ORDERED: DEXTROSE 50%-WATER - 25 GM/50 ML VIAL IVPUSH PRN (08:04)
[2023-04-24 08:28] LABS: HEMOGLOBIN 6.6 GM/dL (10.7-15.3)
[2023-04-24] MEDS ORDERED: INSULIN REGULAR HUMAN 100 UNITS/ML *VIAL IVPUSH ONE (08:32)
[2023-04-24] MEDS ORDERED: SODIUM CHLORIDE 500 ML IV STA (08:44)
[2023-04-24] MEDS ORDERED: CALCIUM GLUCONATE 10% - 1,000 MG/10 ML VIAL IVPUSH ONE (09:00)
[2023-04-24 09:21] LABS: ANISOCYTOSIS 1+; MACROCYTOSIS 1+
[2023-04-24 09:49] LABS: HEMATOCRIT 21.6 % (32.4-45.2); MCH 29.5 pg (25.7-33.7); MCHC 29.1 g/dl (32.0-36.0); MEAN CELL VOLUME 101.3 fl (80-96); MEAN PLT VOLUME 8.3 fl (7.5-11.1); PLATELET COUNT 120 10^3/uL (134-434); RBC 2.13 M/mm3 (3.60-5.2); RDW 18.5 % (11.6-15.6)
[2023-04-24] MEDS ORDERED: MULTIVITAMINS THER W-MINERALS COMBO TABLET (FP) PO SCH (10:00)
[2023-04-24] MEDS ORDERED: PANTOPRAZOLE SODIUM 40 MG VIAL IVPUSH SCH (10:00)
[2023-04-24] MEDS ORDERED: MEMANTINE HCL 5 MG TABLET (UD) PO SCH (10:00)
[2023-04-24] MEDS ORDERED: BUDESONIDE/FORMETEROL FUMARATE 80/4.5 mcg INHALER IH SCH (10:00)
[2023-04-24] MEDS ORDERED: COLLAGENASE CLOSTRIDIUM HIST. 30 GRAMS TUBE TP SCH (10:00)
[2023-04-24] MEDS ORDERED: SODIUM ZIRCONIUM CYCLOSILICATE (LOKELMA) 5 GM PACKET PO SCH (10:00)
[2023-04-24 10:01] LABS: WHITE BLOOD COUNT 31.1 K/mm3 (4.0-10.0)
[2023-04-24 10:02] LABS: HEMOGLOBIN 6.3 GM/dL (10.7-15.3)
[2023-04-24 10:08] LABS: CHLORIDE 99 mmol/L (98-107); SODIUM 135 mmol/L (136-145)
[2023-04-24 10:10] LABS: BLOOD UREA NITROGEN 39.3 mg/dL (7-18); CALCIUM 7.1 mg/dL (8.5-10.1); CO2 7 mmol/L (21-32); GLUCOSE,RANDOM 207 mg/dL (74-106)
[2023-04-24 10:13] LABS: ANION GAP 28 MMOL/L (8-16); CREATININE 2.1 mg/dL (0.55-1.3); POTASSIUM 6.8 mmol/L (3.5-5.1)
[2023-04-24 10:17] VITALS: TEMP 97.2
[2023-04-24 10:24] LABS: LACTIC ACID > 15.0 mmol/L (0.4-2.0)
[2023-04-24] MEDS ORDERED: DEXTROSE 50%-WATER 25 GM/50 ML DISP.SYRIN ONE (10:25)
[2023-04-24] MEDS ORDERED: SODIUM CHLORIDE 1,000 ML IV STA ×2 (10:35)
[2023-04-24 11:12] LABS: PHOSPHOROUS 8.9 mg/dL (2.5-4.9)
[2023-04-24] MEDS: MUPIROCIN CA 2% TOPICAL CREAM 15 GM TUBE TP SCH (11:15)
[2023-04-24] MEDS: BETAMETHASONE DIPR 0.05% OINT 45 GM TUBE TP SCH (11:16)
[2023-04-24] MEDS: MUPIROCIN 2% TOPICAL OINTMENT FOR DECOLONIZATION NS SCH (11:16)
[2023-04-24] MEDS: CEFEPIME 1 GM in DEXTROSE 5%-WATER 100 ML IVPB SCH (11:16)
[2023-04-24] MEDS: FLUDROCORTISONE ACETATE 0.1 MG TABLET (FP) PO SCH (11:19)
[2023-04-24 11:20] LABS: POTASSIUM 6.4 mmol/L (3.5-5.1)
[2023-04-24 11:21] LABS: CALCIUM 6.9 mg/dL (8.5-10.1)
[2023-04-24] MEDS ORDERED: SODIUM CHLORIDE 1,000 ML IV SCH (12:15)
[2023-04-24 12:26] VITALS: BP 55/41; PULSE 84; RESP 16
[2023-04-24 16:21] LABS: LDH 995 U/L (84-246)
[2023-04-24] MEDS: CHLORHEXIDINE GLUCONATE 4% CLEANSER FOR DECOLONIZATION TP SCH (17:24)
[2023-04-24] MEDS: ZINC OXIDE 20% TOPICAL OINTMENT 454 GM JAR TP SCH (17:27)
== END 2023-04-24 12:25 | disposition expired | DRG 871 ==
LOC: JER 10:22 → JERBED 13:59 → JICU 21:36
PROVIDERS: ADMIT Internal Medicine; ATTEND Internal Medicine
PROC: 4A133B1 Monitoring of Arterial Pressure, Peripheral, Percutaneous Approach (ICD-10-PCS; principal; 2023-04-23)
PROC: 4A133J1 Monitoring of Arterial Pulse, Peripheral, Percutaneous Approach (ICD-10-PCS; 2023-04-23)
PROC: 05HN33Z Insertion of Infusion Device into Left Internal Jugular Vein, Percutaneous Approach (ICD-10-PCS; 2023-04-23)
PROC: B544ZZA Ultrasonography of Left Jugular Veins, Guidance (ICD-10-PCS; 2023-04-23)
DX: A41.89 Other specified sepsis (principal); E43 Unspecified severe protein-calorie malnutrition; L89.153 Pressure ulcer of sacral region, stage 3; R65.21 Severe sepsis with septic shock; E87.3 Alkalosis; N39.0 Urinary tract infection, site not specified; N17.9 Acute kidney failure, unspecified; L10.9 Pemphigus, unspecified; F20.89 Other schizophrenia; Z68.22 Body mass index [BMI] 22.0-22.9, adult; F32.A Depression, unspecified; J44.9 Chronic obstructive pulmonary disease, unspecified; E87.6 Hypokalemia; N18.9 Chronic kidney disease, unspecified; E83.42 Hypomagnesemia; E87.5 Hyperkalemia; E86.0 Dehydration; H02.106 Unspecified ectropion of left eye, unspecified eyelid; R41.82 Altered mental status, unspecified; F03.90 Unspecified dementia, unspecified severity, without behavioral disturbance, psychotic disturbance, mood disturbance, and anxiety; I46.9 Cardiac arrest, cause unspecified; E83.39 Other disorders of phosphorus metabolism; B96.1 Klebsiella pneumoniae [K. pneumoniae] as the cause of diseases classified elsewhere; B95.2 Enterococcus as the cause of diseases classified elsewhere; Z74.01 Bed confinement status; Z85.3 Personal history of malignant neoplasm of breast
CPT/HCPCS: 0241U-QW; 36415; 36600; 70450-TC; 71045-TC-FY; 76775-TC; 80048; 80053; 81003; 82436; 82550; 82553; 82803; 82962; 83605; 83615; 83735; 84100; 84133; 84300; 84484; 85025; 85027; 85610; 85730; 86850; 86900; 86901; 86922; 87040; 87045; 87046; 87086; 87186; 87324; 87449; 93005; 93010; 99291; 99292; J1644; J3490